=== PATIENT | female | born 1950 | race Caucasian/White ===

== ENCOUNTER → 2017-09-23 10:54 | Outpatient (CLI) | payer MEDICARE, SELFPAY ==
[2017-09-23 11:42] LABS: Basophils % 0.5 % (0.1-2.0); Eosinophils # 0.1 K/mm3 (0.0-0.4); Eosinophils % 1.8 % (0.1-12.0); Hematocrit 39.9 % (37.0-47.0); Hemoglobin 13.8 g/dL (12.2-16.2); Lymphocytes # 1.8 K/mm3 (0.7-4.5); Lymphocytes % 34.3 K/mm3 (10-50); Mean Corpuscular HGB Conc 34.5 g/dL (31.8-35.4); Mean Corpuscular Hemoglobin 32.2 pg (27.0-31.2); Mean Corpuscular Volume 93.2 fl (81-99); Mean Platelet Volume 8.4 fl (7.4-10.4); Monocytes # 0.4 K/mm3 (0.1-1.0); Monocytes % 7.2 % (1.7-9.3); Neutrophils # 2.9 K/mm3 (1.8-7.8); Neutrophils % 56.2 % (37.0-80.0); Platelet Count 190 K/mm3 (142-424); Red Blood Count 4.28 M/mm3 (4.20-5.40); Red Cell Distribution Width 12.7 % (11.5-17.5); White Blood Count 5.1 K/mm3 (4.8-10.8)
[2017-09-23 12:15] LABS: Hemoglobin A1C 5.4 % (0.0-7.0)
[2017-09-23 12:36] LABS: Alanine Aminotransferase 27 U/L (12-78); Albumin Level 4.2 gm/dL (3.4-5.0); Albumin/Globulin Ratio 1.4 (1.1-1.8); Alkaline Phosphatase 81 U/L (46-116); Anion Gap 13.1 mEq/L (5-15); Aspartate Amino Transferase 24 U/L (15-37); Bilirubin,Total 0.5 mg/dL (0.2-1.0); Blood Urea Nitrogen 11 mg/dL (7-18); Calcium 9.7 mg/dL (8.5-10.1); Carbon Dioxide 28 mmol/L (21.0-32.0); Chloride 104 mmol/L (98-107); Chol/HDL Ratio 4.4 (1-3.5); Cholesterol 162 mg/dL (140-200); Creatinine,Serum 0.56 mg/dL (0.55-1.02); Estimated Glomerular Filt Rate 109 ml/min (>60); GFR (African American) 131 ML/MIN (>60); Globulin 2.9 gm/dl (1.3-3.2); Glucose 115 mg/dL (74-106); HDL Cholesterol 37 mg/dL (29-89); LDL Cholesterol 71 mg/dL (0-130); Potassium 4.1 mmoL/L (3.5-5.1); Sodium 141 mmol/L (136-145); Thyroid Stimulating Hormone 2.43 uIU/ml (0.358-3.740); Total Protein,Serum 7.1 gm/dL (6.4-8.2); Triglycerides 268 mg/dL (30-200); VLDL Cholesterol 54 mg/dL (0-40)
== END ==
PROVIDERS: Visit Provider Internal Medicine Adolescent Medicine
DX: E78.5 Hyperlipidemia, unspecified (principal); E11.9 Type 2 diabetes mellitus without complications; E03.9 Hypothyroidism, unspecified; Q25.3 Supravalvular aortic stenosis
CPT/HCPCS: 36415; 80053; 80061; 83036; 84443; 85025

== ENCOUNTER → 2018-02-04 14:03 | Outpatient (CLI) | payer MEDICARE, SELFPAY ==
--- NOTE | 2018-02-04 14:45 | NVE_ITS ---
Venous Exam Indications: 729.5 Pain in limb. Knee surgery 01/31/18 IMPRESSIONS 1. There is no evidence of significant Reflux. 2. No evidence of deep or superficial vein thrombosis involving the right lower extremity Right lower extremity venous duplex evaluation. Doppler flow study including spectral analysis, color and quiles scale imaging. Location: Vascular laboratory. Patient status: Outpatient. Tables: Venous flow and imaging: + +-------+ + Location Overall Flow properties + +-------+ + Left common femoral Patent Normal phasicity; spontaneous; normal augmentation; compressible + +-------+ + Left saphenofemoral junction Patent Compressible + +-------+ + Left profunda femoral Patent Compressible + +-------+ + Left femoral Patent Normal phasicity; spontaneous; normal augmentation; compressible + +-------+ + Left greater saphenous Patent Normal phasicity; spontaneous; normal augmentation; compressible + +-------+ + Left popliteal Patent Normal phasicity; spontaneous; normal augmentation; compressible + +-------+ + Left posterior tibial Patent Compressible + +-------+ + Left peroneal Patent Compressible + +-------+ + Left gastrocnemius Patent Compressible + +-------+ + Left soleal Patent Compressible + +-------+ + (Report amended ) Electronically signed by: Miles Pacheco [id number]
== END ==
PROVIDERS: PCP Internal Medicine Adolescent Medicine; Visit Provider Internal Medicine Adolescent Medicine
DX: M79.661 Pain in right lower leg (principal)
CPT/HCPCS: 93971

== ENCOUNTER → 2018-05-31 10:30 | Outpatient (CLI) | payer MEDICARE, SELFPAY ==
--- NOTE | 2018-05-31 10:51 | XR_ITS ---
XR chest 2V HISTORY: Hypertension, diabetes, valve replacement, heart disease ITS.REASON: DM II ORDERING PHYSICIAN: Shane Izaguirre MD PATIENT AGE: 67 years COMPARISON: 06/30/2013 FINDINGS: There has been a prior median sternotomy with aortic valve replacement. Heart size is upper limits of normal. No evidence of CHF. There is fracture of the superiormost median sternotomy wire which has developed since the previous exam. There is also fracture of the most inferior median sternotomy wire also developed since the previous study.. The lungs are clear. No acute bony anomalies. IMPRESSION: Prior aortic valve replacement with borderline cardiomegaly, no acute finding
== END ==
PROVIDERS: Visit Provider Internal Medicine Adolescent Medicine
DX: Z01.818 Encounter for other preprocedural examination (principal); E11.9 Type 2 diabetes mellitus without complications; Z79.84 Long term (current) use of oral hypoglycemic drugs
CPT/HCPCS: 71046; 87081

== ENCOUNTER 2018-07-26 07:00 | Outpatient (RCR) | payer MEDICARE, SELFPAY | END 2018-08-02 11:27 | disposition home or self-care (01) | LOC: PT 07:00 | PROVIDERS: Visit Provider Orthopaedic Surgery | DX: Z96.651 Presence of right artificial knee joint (principal) | CPT/HCPCS: 97014; 97110; 97163; G0283 ==

== ENCOUNTER → 2018-11-14 10:45 | Outpatient (CLI) | payer MEDICARE, SELFPAY ==
[2018-11-14 11:19] LABS: Basophils % 0.4 % (0.1-2.0); Eosinophils # 0.1 K/mm3 (0.0-0.4); Eosinophils % 1.7 % (0.1-12.0); Hematocrit 42.2 % (37.0-47.0); Hemoglobin 13.5 g/dL (12.2-16.2); Lymphocytes # 1.5 K/mm3 (0.7-4.5); Lymphocytes % 29.7 % (10-50); Mean Corpuscular HGB Conc 31.9 g/dL (31.8-35.4); Mean Corpuscular Hemoglobin 30.7 pg (27.0-31.2); Mean Corpuscular Volume 96.4 fl (81-99); Mean Platelet Volume 9.4 fl (7.4-10.4); Monocytes # 0.3 K/mm3 (0.1-1.0); Monocytes % 6.5 % (1.7-9.3); Neutrophils # 3.1 K/mm3 (1.8-7.8); Neutrophils % 61.7 % (37.0-80.0); Platelet Count 176 K/mm3 (142-424); Red Blood Count 4.38 M/mm3 (4.20-5.40); Red Cell Distribution Width 13.5 % (11.5-17.5); White Blood Count 5.1 K/mm3 (4.8-10.8)
[2018-11-14 12:13] LABS: Erythrocyte Sedimentation Rate 14 mm/hr (0-30)
[2018-11-14 12:35] LABS: Alanine Aminotransferase 28 U/L (12-78); Albumin Level 4.1 gm/dL (3.4-5.0); Albumin/Globulin Ratio 1.5 (1.1-1.8); Alkaline Phosphatase 92 U/L (46-116); Anion Gap 13.6 mEq/L (5-15); Aspartate Amino Transferase 18 U/L (15-37); Bilirubin,Total 0.5 mg/dL (0.2-1.0); Blood Urea Nitrogen 17 mg/dL (7-18); Calcium 9.4 mg/dL (8.5-10.1); Carbon Dioxide 29 mmol/L (21.0-32.0); Chloride 103 mmol/L (98-107); Creatinine,Serum 0.59 mg/dL (0.55-1.02); Estimated Glomerular Filt Rate 102 ml/min (>60); GFR (African American) 123 ML/MIN (>60); Globulin 2.8 gm/dl (1.3-3.2); Glucose 113 mg/dL (74-106); Potassium 4.6 mmoL/L (3.5-5.1); Sodium 141 mmol/L (136-145); Thyroid Stimulating Hormone 1.54 uIU/ml (0.358-3.740); Total Protein,Serum 6.9 gm/dL (6.4-8.2)
[2018-11-14 12:51] LABS: C-Reactive Protein < 0.2 mg/L (0.0-0.9)
== END ==
PROVIDERS: Visit Provider Internal Medicine Adolescent Medicine
DX: I10 Essential (primary) hypertension (principal)
CPT/HCPCS: 36415; 80053; 84443; 85025; 85651; 86140

== ENCOUNTER → 2018-12-26 10:27 | Outpatient (CLI) | payer MEDICARE, OTHER, SELFPAY ==
--- NOTE | 2018-12-26 10:40 | XR_ITS ---
PROCEDURE: XR FOOT WT BEARING RT 3V CLINICAL INDICATION: foot pain of right great toe COMPARISON: No exams were available for comparison FINDINGS: No fracture or dislocation. No lytic or blastic change. There is normal mineralization. Mild to moderate hallux valgus with bunion formation and osteoarthritis of the 1st MTP joint. There is some minimal periosteal reaction along the distal aspect of the 1st metatarsal medially. Osteoarthritic changes are present at the tarsal metatarsal junction digits 1 through 5. There is an os cuboid and os navicularis Other findings:None. IMPRESSION: Hallux valgus with degenerative changes as described above Dictated by: Miles Pacheco MD 12/26/2018 13:13 Signed by: <Electronically signed by Miles Pacheco MD in [place]> 12/26/2018 13:13
--- NOTE | 2018-12-26 10:40 | XR_ITS ---
PROCEDURE: XR FOOT WT BEARING LT 3V CLINICAL INDICATION: pain COMPARISON: Right foot from the same day FINDINGS: Mild hallux valgus with bunion formation and osteoarthritis of the 1st MTP joint. There is cortical thickening involving the shaft of the 4th metatarsal with osteoarthritic changes at the metatarsal tarsal joint of digits 2 through 5 with subarticular cystic changes. There is mild pes planus with bony hypertrophic change noted at the navicular cuneiform joint. Subarticular cystic changes present at the metatarsal tarsal junction of the 5th metatarsal. The joint spaces are well-preserved. No significant degenerative/arthritic changes. No erosive changes evident. Other findings:Vascular calcifications IMPRESSION: Pes planus with hallux valgus and degenerative changes as described above Dictated by: Miles Pacheco MD 12/26/2018 12:42 Signed by: <Electronically signed by Miles Pacheco MD in [place]> 12/26/2018 12:42
== END ==
PROVIDERS: PCP Internal Medicine Adolescent Medicine; Visit Provider Podiatrist
DX: M79.672 Pain in left foot (principal); M79.671 Pain in right foot
CPT/HCPCS: 73630

== ENCOUNTER → 2019-03-14 07:33 | Outpatient (CLI) | payer MEDICARE, OTHER, SELFPAY ==
--- NOTE | 2019-03-14 | CA_ITS ---
APPROVED REPORT EXAM: Comprehensive 2D, Doppler, and color-flow Echocardiogram Cable Assembler And Swager: Ann Torres CRT Ht: 5 ft 2 in Wt: 185lbs BSA: 1.85 BP: 117/60 mmHg Indications: AVR, BOVINE 06/11/13, MURMUR more pronounced, DM, HLD, HTN 2D Dimensions IVSd 2.10 cm LVEF (Visual) 42.60 % PWd 1.12 cm LVDd 4.82 cm LVDs 3.81 cm LVOT 2.55 cm (M/F) 1.5-2.5 M-Mode Dimensions LVDd 4.82 cm (3.5-5.7) LVDs 3.81 cm (3.5-5.7) IVSd 2.10 cm (0.6-1.1) PWd 1.12 cm (0.6-1.1) FS 21.00% LV Diastology E/A Ratio 2.58 Aortic Valve LVOT Max 110.00 (70-110 cm/s) LVOT VTI 32.06 cm Mitral Valve MV A Velocity 49.00 (40-130 cm/s) Left Ventricle Left atrium is moderately enlarged, left ventricle is normal size, mild concentric left ventricular hypertrophy, visually estimated ejection fraction 55% with no regional wall motion abnormality. Diastolic parameters are inconclusive. Right Ventricle Right atrium right ventricle mildly enlarged with normal contractility. Aortic Valve There is a bioprosthetic valve noted in the aortic position, the valve is well-seated. The mean gradient across prosthetic valve is 14 mmHg, valve area is 1.2 cm???, there is mild aortic insufficiency. Mitral Valve Mitral inflow velocity within normal range, there is no mitral stenosis, there is mild mitral regurgitation. Tricuspid Valve Tricuspid valve is grossly normal, there is mild tricuspid regurgitation, calculated right ventricular systolic pressure 38 mmHg. Pulmonic Valve Pulmonic valve is poorly visualized. Great Vessels Aortic root is normal size. Pericardium No significant pericardial effusion noted. Conclusion 1. Enlarged left atrium, normal left ventricular size, mild concentric left ventricular hypertrophy, visually estimated ejection fraction 55% with no regional wall motion abnormality. 2. Bioprosthetic valve in the aortic position, mean gradient across valve is 14 mmHg, valve area is calculated 1.2 cm???, there is mild aortic insufficiency. 3. Mild mitral and tricuspid regurgitation, calculated right ventricular systolic pressure 38 mmHg 4. No significant pericardial effusion noted. Electronically signed by : Frank Quintana, 03/16/2019 14:25:11
== END ==
PROVIDERS: PCP Internal Medicine Adolescent Medicine; Visit Provider Internal Medicine Adolescent Medicine
DX: R01.1 Cardiac murmur, unspecified (principal)
CPT/HCPCS: 93306

== ENCOUNTER → 2019-06-18 09:27 | Outpatient (CLI) | payer MEDICARE, OTHER, SELFPAY ==
[2019-06-18 09:47] LABS: Basophils % 0.6 % (0.1-2.0); Eosinophils # 0.1 K/mm3 (0.0-0.4); Eosinophils % 2.5 % (0.1-12.0); Hematocrit 40.1 % (37.0-47.0); Hemoglobin 13.3 g/dL (12.2-16.2); Lymphocytes # 1.5 K/mm3 (0.7-4.5); Lymphocytes % 29.6 % (10-50); Mean Corpuscular HGB Conc 33.2 g/dL (31.8-35.4); Mean Corpuscular Volume 93.3 fl (81-99); Mean Platelet Volume 8.9 fl (7.4-10.4); Monocytes # 0.4 K/mm3 (0.1-1.0); Neutrophils # 3.1 K/mm3 (1.8-7.8); Neutrophils % 59.3 % (37.0-80.0); Platelet Count 170 K/mm3 (142-424); Red Blood Count 4.29 M/mm3 (4.20-5.40); Red Cell Distribution Width 13.7 % (11.5-17.5); White Blood Count 5.2 K/mm3 (4.8-10.8)
[2019-06-18 11:14] LABS: Alanine Aminotransferase 28 U/L (12-78); Albumin Level 4.1 gm/dL (3.4-5.0); Albumin/Globulin Ratio 1.6 (1.1-1.8); Alkaline Phosphatase 61 U/L (46-116); Anion Gap 12.6 mEq/L (5-15); Aspartate Amino Transferase 22 U/L (15-37); Bilirubin,Total 0.4 mg/dL (0.2-1.0); Blood Urea Nitrogen 19 mg/dL (7-18); Calcium 9.4 mg/dL (8.5-10.1); Carbon Dioxide 29 mmol/L (21.0-32.0); Chloride 106 mmol/L (98-107); Chol/HDL Ratio 3.4 (1-3.5); Cholesterol 125 mg/dL (140-200); Creatinine,Serum 0.64 mg/dL (0.55-1.02); Estimated Glomerular Filt Rate 93 ml/min (>60); GFR (African American) 112 ML/MIN (>60); Globulin 2.6 gm/dl (1.3-3.2); Glucose 113 mg/dL (74-106); HDL Cholesterol 37 mg/dL (29-89); LDL Cholesterol 46 mg/dL (0-130); Potassium 4.6 mmoL/L (3.5-5.1); Sodium 143 mmol/L (136-145); Thyroid Stimulating Hormone 1.74 uIU/ml (0.358-3.740); Total Protein,Serum 6.7 gm/dL (6.4-8.2); Triglycerides 209 mg/dL (30-200); VLDL Cholesterol 42 mg/dL (0-40)
[2019-06-18 11:46] LABS: Hemoglobin A1C 5.6 % (0.0-7.0)
== END ==
PROVIDERS: Visit Provider Internal Medicine Adolescent Medicine
DX: E03.9 Hypothyroidism, unspecified (principal); E78.2 Mixed hyperlipidemia; E11.9 Type 2 diabetes mellitus without complications; Z79.84 Long term (current) use of oral hypoglycemic drugs
CPT/HCPCS: 36415; 80053; 80061; 83036; 84443; 85025

== ENCOUNTER → 2019-08-29 10:25 | Outpatient (CLI) | payer MEDICARE, OTHER, SELFPAY ==
--- NOTE | 2019-08-29 10:39 | XR_ITS ---
PROCEDURE: XR ANKLE RT MIN 3V CLINICAL INDICATION: ARTHRITIS Right ankle pain COMPARISON: XR FOOT WT BEARING RT 3V from 12/26/2018 FINDINGS: No fracture or dislocation. No lytic or blastic change. Talar dome has an unremarkable appearance and the ankle mortise is well preserved. There are mild arthritic changes of the midfoot. There is mild prominence of the posterior talar process and there is a small calcaneal spur. Small focal area of calcification noted at the distal Achilles region IMPRESSION: Mild degenerative changes Dictated by: Miles Pacheco MD 08/29/2019 11:42 Electronically signed by Miles Pacheco MD in [place] 08/29/2019 11:42
[2019-08-29 12:38] LABS: Chloride 104 mmol/L (98-107); Sodium 138 mmol/L (136-145)
[2019-08-29 12:39] LABS: Potassium 4.2 mmoL/L (3.5-5.1)
[2019-08-29 12:41] LABS: Alanine Aminotransferase 20 U/L (12-78); Albumin Level 4.4 g/dl (3.5-5.0); Albumin/Globulin Ratio 1.8 (1.1-1.8); Alkaline Phosphatase 73 U/L (38-126); Anion Gap 12.2 mEq/L (5-15); Aspartate Amino Transferase 28 U/L (14-36); Bilirubin,Total 0.4 mg/dl (0.2-1.3); Blood Urea Nitrogen 11 mg/dl (7-17); Carbon Dioxide 26 mmol/L (22.0-30.0); Estimated Glomerular Filt Rate 100 ml/min (>60); GFR (African American) 121 ML/MIN (>60); Globulin 2.4 g/dL (1.3-3.2); Total Protein,Serum 6.8 g/dl (6.3-8.2); Uric Acid 4.6 mg/dl (2.5-6.2)
[2019-08-29 12:42] LABS: Calcium 10.3 mg/dl (8.4-10.2); Glucose 130 mg/dl (74-100)
[2019-08-29 13:33] LABS: Erythrocyte Sedimentation Rate 17 mm/hr (0-30)
[2019-08-29 13:37] LABS: Basophils # 0.1 K/mm3 (0-0.2); Eosinophils # 0.2 K/mm3 (0.0-0.4); Eosinophils % 2.5 % (0.1-12.0); Hematocrit 40.3 % (37.0-47.0); Hemoglobin 13.3 g/dL (12.2-16.2); Lymphocytes # 1.7 K/mm3 (0.7-4.5); Lymphocytes % 28.4 % (10-50); Mean Corpuscular HGB Conc 33.1 g/dL (31.8-35.4); Mean Corpuscular Hemoglobin 31.7 pg (27.0-31.2); Mean Corpuscular Volume 95.8 fl (81-99); Mean Platelet Volume 9.2 fl (7.4-10.4); Monocytes # 0.5 K/mm3 (0.1-1.0); Monocytes % 7.9 % (1.7-9.3); Neutrophils # 3.6 K/mm3 (1.8-7.8); Neutrophils % 60.2 % (37.0-80.0); Platelet Count 182 K/mm3 (142-424); Red Blood Count 4.21 M/mm3 (4.20-5.40); Red Cell Distribution Width 13.2 % (11.5-17.5); White Blood Count 5.9 K/mm3 (4.8-10.8)
== END ==
PROVIDERS: PCP Internal Medicine Adolescent Medicine; Visit Provider Internal Medicine Adolescent Medicine
DX: M19.071 Primary osteoarthritis, right ankle and foot (principal); Z79.899 Other long term (current) drug therapy
CPT/HCPCS: 36415; 73610; 80053; 84550; 85025; 85651

== ENCOUNTER → 2019-10-04 08:57 | Outpatient (CLI) | payer MEDICARE, OTHER, SELFPAY ==
--- NOTE | 2019-10-04 09:08 | XR_ITS ---
PROCEDURE: XR ANKLE WT BEARING RT MIN 3V CLINICAL INDICATION: pain COMPARISON: No exams were available for comparison FINDINGS: Minimal spurring noted at the tip of the medial malleolus. Normal alignment. No fracture or dislocation. The ankle mortise is well preserved and the talar dome has an unremarkable appearance. IMPRESSION: Minimal degenerative changes Dictated by: Miles Pacheco MD 10/04/2019 13:24 Electronically signed by Miles Pacheco MD in [place] 10/04/2019 13:24
--- NOTE | 2019-10-04 09:08 | XR_ITS ---
PROCEDURE: XR FOOT WT BEARING RT 3V CLINICAL INDICATION: pain COMPARISON: FTL3 FOOT-LT-3 VIEWS from 08/09/2013 XR FOOT WT BEARING RT 3V from 12/26/2018 XR FOOT WT BEARING LT 3V from 12/26/2018 XR ANKLE WT BEARING RT MIN 3V from 10/04/2019 FINDINGS: There is moderate hallux valgus with osteoarthritis of the 1st MTP joint. There is bunion formation at the distal 1st metatarsal Osteoarthritic changes are present at the tarsal metatarsal junction and to lesser degree at the talonavicular, calcaneocuboid, and navicular cuneiform joint. Other findings:None. IMPRESSION: Osteoarthritic changes with hallux valgus. Overall no significant change Dictated by: Miles Pacheco MD 10/04/2019 13:22 Electronically signed by Miles Pacheco MD in [place] 10/04/2019 13:22
== END ==
PROVIDERS: PCP Internal Medicine Adolescent Medicine; Visit Provider Podiatrist
DX: M25.571 Pain in right ankle and joints of right foot (principal)
CPT/HCPCS: 73610; 73630

== ENCOUNTER → 2019-10-25 07:29 | Outpatient (CLI) | payer MEDICARE, OTHER, SELFPAY ==
[2019-10-25 07:54] LABS: Blood Urea Nitrogen 14 mg/dl (7-17); Estimated Glomerular Filt Rate 83 ml/min (>60); GFR (African American) 101 ML/MIN (>60)
--- NOTE | 2019-10-25 08:29 | MR_ITS ---
PROCEDURE: MR ANKLE RT WO/W CON CLINICAL INDICATION: ankle pain Foot and ankle pain with motion COMPARISON: XR FOOT WT BEARING RT 3V from 10/04/2019 XR ANKLE WT BEARING RT MIN 3V from 10/04/2019 TECHNIQUE: Routine multiplanar multi echo sequences are performed without and with gadolinium enhancement. FINDINGS: The tibiofibular syndesmosis appears intact as does the ATFL and PT FL. Deltoid ligament has an unremarkable appearance. There is a small amount fluid within the tendon sheath of the peroneal tendons at the retro malleolar groove. There is some heterogeneous signal intensity of the peroneal longus inferior to the retro malleolar groove best seen 18 through 22. There is mild diffuse increased signal intensity involving the peroneus longus in its horizontal course distal to the inferior aspect of the calcaneus and proximal to the cuboid. Some of this may be due to magic angle artifact. Tendinopathy/tendinosis or even partial tear is also consideration. The posterior tibialis, flexor hallucis longus, and flexor digitorum longus and Achilles tendon have an unremarkable appearance. There is increased T2 signal in the surrounding soft tissues adjacent to the peroneus longus at the area of abnormal tendon signal with some enhancement of the soft tissues is well in this region. There is some mild bone marrow edema of the cuneiforms with degenerative changes IMPRESSION: 1. Abnormal appearance of the peroneus longus tendon with a small amount fluid in the tendon sheath at the retro malleolar groove and heterogeneous signal intensity at the retro malleolar groove and distal to this area with diffuse increased T2 signal of the tendon proximal to the cuboid suggesting tendinopathy/tendinosis or possible partial tear with some edema in the soft tissues adjacent to the tendon. Some of the abnormal signal within the peroneus longus tendon may be related to magic angle artifact. 2. Degenerative changes of the cuneiforms not well demonstrated on this study of the ankle. Dictated by: Miles Pacheco MD 10/27/2019 07:55 Electronically signed by Miles Pacheco MD in [place] 10/27/2019 07:55
== END ==
PROVIDERS: PCP Internal Medicine Adolescent Medicine; Visit Provider Podiatrist
DX: M25.371 Other instability, right ankle (principal); M25.471 Effusion, right ankle; M76.71 Peroneal tendinitis, right leg; M25.571 Pain in right ankle and joints of right foot
CPT/HCPCS: 36415; 73723; 82565; 84520; A9576

== ENCOUNTER → 2019-11-14 10:22 | Outpatient (CLI) | payer MEDICARE, OTHER, SELFPAY ==
--- NOTE | 2019-11-14 10:24 | CA_ITS ---
APPROVED REPORT Exam: Pharmacologic Technologist: Shasha Head Ht: 5 ft 1 in Wt: 197 lbs BSA: 1.88 m2 HR: 61 bpm BP: 123/57 mmHg Indications: Chest pain, Carotid Bruits bilat Medical History Medications: Amlodipine,,,,, Omeprazole,,,,, Levothyroxine,,,,, Aspirin,,,,, Metoprolol,,,,, Simvastatin,,,,, Metformin,,,,, Losartan,,,,, Diclofenac,,,,, BuPROPION,,,,, Clobetasol,,,,, Stress Test Details Test: LEXISCAN HR Resting HR: 61 bpm Max Heart Rate (APMHR): 153 bpm Max HR Achieved: 83 bpm Target HR (85% APMHR): 130 bpm % of APMHR: 54 Recovery HR: 73 bpm BP Resting BP: 123.0/57.0 mmHg Max BP: 138.0/58.0 mmHg Recovery BP: 138.0/62.0 mmHg ECG Clinical Exercise duration: 04:01 min Highest Stage Achieved: Exercise capacity: 1.0 METs Stress ECG Conclusion Resting ECG: Normal sinus rhythm, NS IVCD ST abnormality Symptoms: Mild chest fullness, shortness of air, headache, malaise Arrhythmias/Ectopy: None ST-T Changes: No significant changes Conclusion: Unremarkable Lexiscan stress. Myoview images reported separately. Test Summary REST 03:54 . . 61 . 123/ 57 . . Stage 1 . . . . . . . Myoview Injected Stage 1 01:00 . . 82 . . . . Stage 2 01:00 . . 75 . 134/ 57 . . Stage 3 . . . . . . . . Stage 3 . . . . . . . chest feels full Stage 3 01:00 . . 71 . 137/ 57 . . Stage 4 01:00 . . 70 . 138/ 58 . . Stage 4 01:01 . . 70 . 138/ 58 . Stop exercise at 04:01 RECOVERY 01:00 . . 69 . . . . RECOVERY 02:00 . . 70 . 123/ 61 . . RECOVERY 03:00 . . 73 . 138/ 62 . . RECOVERY 03:35 . . 70 . 138/ 62 . . Electronically signed by : Frank Quintana, 11/15/2019 09:55:12
--- NOTE | 2019-11-14 10:24 | CA_ITS ---
APPROVED REPORT Pipeline Inspector: SERGIO Laterality: Bilateral Study Quality: Fair, Due to body habitus. Indications: bilateral bruits Risk Factors Hypertension: Hyperlipidemia Doppler Spectral Velocity Analysis ECA (R) 109.20/12.70 cm/s ECA (L) 73.20/10.50 cm/s dICA (R) 99.40/25.70 cm/s dICA (L) 97.80/25.40 cm/s Ijeoma (R) 131.10/28.30 cm/s Ijeoma (L) 75.40/20.20 cm/s pICA (R) 58.40/12.70 cm/s pICA (L) 70.30/18.80 cm/s dCCA (R) 87.50/18.70 cm/s dCCA (L) 74.50/18.00 cm/s pCCA (R) 110.00/15.00 cm/s pCCA (L) 117.40/16.30 cm/s Vert (R) 60.00/14.60 cm/s Vert (L) 40.30/13.70 cm/s ICA/CCA 1.50 ICA/CCA 1.30 Findings Duplex evaluation demonstrates stenosis of the right proximal internal carotid artery <20% with PSV <140 cm/sec, EDV <100 cm/sec, and IC/CC Ratio <4.0.Duplex evaluation demonstrates stenosis of the left proximal internal carotid artery <20% with PSV <140 cm/sec, EDV <100 cm/sec, and IC/CC Ratio <4.0. Conclusion No increased velocities to suggest hemodynamically significant stenosis in either internal carotid artery. Electronically signed by : Miles Pacheco MD 11/15/2019 17:31:00
--- NOTE | 2019-11-14 10:24 | NM_ITS ---
APPROVED REPORT Exam: Nuclear Stress Test Indication: CAD, VALVULAR DISEASE, OBESITY, HTN, D.M., HYPERLIPIDEMIA, FM HX., C.P., SOB, SYNCOPE, FATIGUE Patient Location: Outpatient Stress Tech: Shsaha Head NM Tech:Mable Waters, ARRT, RT (R)(N) Ht: 5 ft 1 in Wt: 197 lbs Bra Size: DDD HR: 61 bpm BP: 123/57 mmHg BSA: 1.88 m2 BMI: 37.2 History: CAD, VALVULAR DISEASE, OBESITY, HTN, D.M., HYPERLIPIDEMIA, FM HX., C.P., SOB, SYNCOPE, FATIGUE Procedure: Patient received a 0.4 mg of intravenous Lexiscan, resting heart rate 61 bpm, resting blood pressure 123/57 mmHg, with Lexiscan maximum heart rate achived was 68 bpm which is Less than 85 % of the maximum predicted heart rate and blood pressure was 138/58 mmHg. CHEST FULLNESS Electrocardiogram Resting electrocardiogram showed sinus rhythm, with Lexiscan there is less than 1.[address] segment depression noted from the baseline EKG. The EKG portion of the Lexiscan Myoview is nondiagnostic. Cardiac Stress and Resting SPECT Images: Cardiac Stress and Resting SPECT images were obtained using technetium 99m Myoview 32.4 mCi stress and 10.46 mCi at rest. Gated SPECT for the analysis of segmental wall motion and calculation of the ejection fraction also done. Cardiac stress and resting SPECT images show mild fixed defect in the anterior wall with normal contour gated SPECT is likely secondary to soft tissue attenuation, no reversible ischemia seen. Computer derived ejection fraction 59% with no regional wall motion abnormality, right ventricle is normal size and contractility. Conclusion: 1. The EKG portion of the Lexiscan Myoview is nondiagnostic. 2. No scintigraphic evidence of reversible ischemia seen, computer derived ejection fraction 59% with no regional wall motion abnormality, right ventricle is normal size and contractility. 3. Likely normal Lexiscan Myoview study. Electronically signed by : Frank Quintana, 11/15/2019 09:57:34
--- NOTE | 2019-11-14 13:03 | HMH.ITSHM ---
Current Home Medications as stated by this patient Mireya Schwartz or district representative. []SIMVASTATIN OMEPRAZOLE METOPROLOL METFORMIN LOSARTAN LEVOTHYROXINE DICLOFENAC ASA AMLODIPINE
== END ==
PROVIDERS: PCP Internal Medicine Adolescent Medicine; Visit Provider Nurse Practitioner Family
DX: R06.00 Dyspnea, unspecified (principal); R07.9 Chest pain, unspecified; R09.89 Other specified symptoms and signs involving the circulatory and respiratory systems
CPT/HCPCS: 78452; 93017; 93880; A9502; J2785

== ENCOUNTER 2019-12-08 17:32 | Emergency (ER) | payer MEDICARE, OTHER, SELFPAY ==
[2019-12-08 17:33] VITALS: BP 147/56; PULSE 70; RESP 18; TEMP 37.4; O2SAT 97; BMI 37.2
--- NOTE | 2019-12-08 17:42 | ECG_ITS ---
APPROVED REPORT Exam: Resting ECG HR:70 bpm ECG Measurements Heart Rate 70 AXES NV 138 P 52 QRSd 114 QRS -34 QT 414 T 65 QTc 447 <Conclusion> Normal sinus rhythm Possible Left atrial enlargement Left axis deviation,LAHB Abnormal ECG Electronically signed by : Adin Hodge, 12/09/2019 22:03:33
--- NOTE | 2019-12-08 18:03 | XR_ITS ---
PROCEDURE: XR CHEST PORTABLE Patient Age:69Y CLINICAL HISTORY: CP COMPARISON: No exams were available for comparison FINDINGS: AP portable chest upright performed today and compared to most recent chest film 05/31/2018. . Today's kettle operator film, and higher contrast technique does accentuate markings but I see no convincing focal infiltrate Markings are upper normal towards the right lung base. Likely reflecting some minor chronic changes. Less optimal inspiration today also makes situated markings. The heart is upper normal in size borderline cardiomegaly. Normal pulmonary vascularity. Previous median sternotomy. A disruption of the uppermost wire suture as sternotomy again noted-stable feature since 2018. No pleural effusion or pneumothorax. Chest wall unremarkable. IMPRESSION: Nothing definitely acute Borderline cardiomegaly. Previous sternotomy Dictated by: Dale Elizabeth MD 12/08/2019 19:49 Electronically signed by Dale Elizabeth MD in [place] 12/08/2019 19:49
--- NOTE | 2019-12-08 18:14 | HMH.EDCP ---
ED Disposition Condition on Discharge: Fair - Critical Care Critical Care Time: No <Sharif Blackmon - Last Filed: 12/08/19 19:59> Condition on Discharge: Good <Robby Abdul - Last Filed: 12/09/19 01:43> Clinical Impression: Left arm pain Disposition: Home, Self-Care Instructions: DI for Atypical Chest Pain Additional Instructions: See Dr. Garcia in his office at 9 AM Tuesday morning. Turn to the emergency room if symptoms worsen: Pain that does not resolve with rest, worsening pain or shortness of breath. Referrals: Shane Izaguirre MD [Primary Care Provider] - Attestation: On 12/08/19, the high probability of a clinically significant, sudden or life threatening deterioration of the following system(s) required my full and direct attention, intervention and personal management. The time I documented below is in addition to time spent performing reported procedures but includes the following listed in this critical care notation. Medical Decision Making - Jeff Inquiry Pt receiving controlled substance: No - Lab Data Lab results reviewed: Yes: I reviewed the patient's lab results. Result diagrams: 12/08/19 18:07 12/08/19 18:07 - ECG Data Tracing #1 ECG initial impression date: 12/08/19 ECG initial impression time: 17:50 ECG normal with no acute: arrhythmias, ischemia, conduction abnormalities, chamber hypertrophy Normal Sinus Rhythm: Yes <Sharif Blackmon - Last Filed: 12/08/19 19:59> - Medical Records Medical records reviewed: Yes: I reviewed the patient's medical records. - Lab Data Result diagrams: 12/08/19 18:07 12/08/19 18:07 - Physician Consults Physician Consulted: Radha Time: 20:45 Reason -: Cardiology Eval/Care Comment/Response: Second troponin is negative, discharge home and patient to follow-up in his office at 9 AM on Tuesday. Patient is agreeable with this plan. - Reevaluation(s) Time: 20:30 Time: 21:25 - ALVIN Score for Non-Stemi Age of Patient: 60-69 years old Heart Rate: 70-89 bpm Systolic Blood Pressure: 140-159 mmHg Serum Creatinine: 0.40-0.79 mg/dl CHF Killip Class: I-No CHF Other Risk Factors: None Non-Stemi Risk Score: 95 <Robby Abdul - Last Filed: 12/09/19 01:43> Vital Signs: 12/08/19 17:33 12/08/19 20:42 12/08/19 21:39 Temperature 99.4 F 98.2 F Temperature Source Oral Oral Pulse Rate 75 Pulse Rate [Radial] 70 66 Respiratory Rate 18 18 16 Blood Pressure 118/53 L Blood Pressure [Right Arm] 147/56 H 149/71 H Blood Pressure Mean [Right Arm] 86 97 Blood Pressure Source Automatic Cuff Blood Pressure Source [Right Arm] Automatic Cuff Blood Pressure Position Sitting Blood Pressure Position [Right Arm] Sitting 02 Sat by Pulse Oximetry 97 96 Oxygen Delivery Method Room Air Room Air Room Air - Lab Data Lab Results 12/08/19 18:07: WBC 7.2, RBC 4.12 L, Hgb 13.5, Hct 36.6 L, MCV 88.9, MCH 32.7 H, MCHC 36.7 H, RDW 13.8, Plt Count 191, MPV 9.0, Neut % (Auto) 60.1, Lymph % (Auto) 31.4, Calvert % (Auto) 6.1, Eos % (Auto) 2.1, Baso % (Auto) 0.5, Neut # (Auto) 4.3, Lymph # (Auto) 2.3, Calvert # (Auto) 0.4, Eos # (Auto) 0.2, Baso # (Auto) 0.0 12/08/19 18:07: Sodium 140, Potassium 4.2, Chloride 103, Carbon Dioxide 28, Anion Gap 13.2, BUN 16, Creatinine 0.70, Estimated Creat Clear 77, Estimated GFR 83, Est GFR ( Amer) 101, Glucose 109 H, Calcium 10.5 H, Total Bilirubin 0.6, AST 38 H, ALT 32, Alkaline Phosphatase 70, Total Creatine Kinase 87, CK-MB (CK-2) 2.8 H, Troponin I < 0.01, NT-Pro-B Natriuret Pep 325 H, Total Protein 7.1, Albumin 4.5, Globulin 2.6, Albumin/Globulin Ratio 1.7 12/08/19 20:35: Troponin I < 0.01 - Reevaluation(s) Reevaluation #1: Pain-free at this time. States that she is supposed to have her second troponin drawn now, although it was scheduled for 9:15 PM. She says that Dr. Blackmon told her an hour ago that it would be drawn in 1 hour and she is insistent that it be drawn now. (Robby Abdul) Reevaluation #3:
[2019-12-08 18:23] LABS: Basophils % 0.5 % (0.1-2.0); Eosinophils # 0.2 K/mm3 (0.0-0.4); Eosinophils % 2.1 % (0.1-12.0); Hematocrit 36.6 % (37.0-47.0); Hemoglobin 13.5 g/dL (12.2-16.2); Lymphocytes # 2.3 K/mm3 (0.7-4.5); Lymphocytes % 31.4 % (10-50); Mean Corpuscular HGB Conc 36.7 g/dL (31.8-35.4); Mean Corpuscular Hemoglobin 32.7 pg (27.0-31.2); Mean Corpuscular Volume 88.9 fl (81-99); Monocytes # 0.4 K/mm3 (0.1-1.0); Monocytes % 6.1 % (1.7-9.3); Neutrophils # 4.3 K/mm3 (1.8-7.8); Neutrophils % 60.1 % (37.0-80.0); Platelet Count 191 K/mm3 (142-424); Red Blood Count 4.12 M/mm3 (4.20-5.40); Red Cell Distribution Width 13.8 % (11.5-17.5); White Blood Count 7.2 K/mm3 (4.8-10.8)
[2019-12-08 18:24] LABS: Chloride 103 mmol/L (98-107); Potassium 4.2 mmoL/L (3.5-5.1); Sodium 140 mmol/L (136-145)
[2019-12-08 18:27] LABS: Alanine Aminotransferase 32 U/L (12-78); Albumin Level 4.5 g/dl (3.5-5.0); Albumin/Globulin Ratio 1.7 (1.1-1.8); Alkaline Phosphatase 70 U/L (38-126); Anion Gap 13.2 mEq/L (5-15); Aspartate Amino Transferase 38 U/L (14-36); Bilirubin,Total 0.6 mg/dl (0.2-1.3); Blood Urea Nitrogen 16 mg/dl (7-17); Calcium 10.5 mg/dl (8.4-10.2); Carbon Dioxide 28 mmol/L (22.0-30.0); Creatine Kinase 87 U/L (30-135); Creatinine Clearance Estimated 77 mL/min (50-200); Estimated Glomerular Filt Rate 83 ml/min (>60); GFR (African American) 101 ML/MIN (>60); Globulin 2.6 g/dL (1.3-3.2); Glucose 109 mg/dl (74-100); Total Protein,Serum 7.1 g/dl (6.3-8.2)
--- NOTE | 2019-12-08 18:32 | PC.NURSE ---
Pt up to restroom
[2019-12-08 18:36] LABS: Creatine Kinase MB 2.8 ng/ml (0.0-2.03); NT Pro Brain Natriuretic Pep. 325 pg/mL (0-125)
[2019-12-08 18:43] LABS: Troponin I < 0.01 ng/ml (0.00-0.034)
[2019-12-08 20:42] VITALS: BP 149/71; PULSE 66; RESP 18; O2SAT 96
[2019-12-08 21:08] LABS: Troponin I < 0.01 ng/ml (0.00-0.034)
[2019-12-08 21:39] VITALS: BP 118/53; PULSE 75; RESP 16; TEMP 36.8; O2SAT 98
== END 2019-12-08 21:40 | disposition home or self-care (01) ==
PROVIDERS: Emergency Medicine; Emergency Provider Emergency Medicine; PCP Internal Medicine Adolescent Medicine
DX: M79.602 Pain in left arm (principal); E11.9 Type 2 diabetes mellitus without complications; F41.8 Other specified anxiety disorders; I10 Essential (primary) hypertension; E78.5 Hyperlipidemia, unspecified; E03.9 Hypothyroidism, unspecified; Z88.2 Allergy status to sulfonamides; Z88.5 Allergy status to narcotic agent
CPT/HCPCS: 71045; 80053; 82550; 82553; 83880; 84484; 85025; 93005; 99283

== ENCOUNTER → 2019-12-10 08:04 | Outpatient (CLI) | payer MEDICARE, OTHER, SELFPAY ==
[2019-12-10 09:47] LABS: Chloride 102 mmol/L (98-107)
[2019-12-10 09:48] LABS: Potassium 4.1 mmoL/L (3.5-5.1); Sodium 139 mmol/L (136-145)
[2019-12-10 09:51] LABS: Anion Gap 14.1 mEq/L (5-15); Blood Urea Nitrogen 15 mg/dl (7-17); Calcium 9.6 mg/dl (8.4-10.2); Carbon Dioxide 27 mmol/L (22.0-30.0); Estimated Glomerular Filt Rate 83 ml/min (>60); GFR (African American) 101 ML/MIN (>60); Glucose 181 mg/dl (74-100)
[2019-12-10 09:57] LABS: NT Pro Brain Natriuretic Pep. 237 pg/mL (0-125)
== END ==
PROVIDERS: Visit Provider Internal Medicine Cardiovascular Disease
DX: E11.9 Type 2 diabetes mellitus without complications (principal); E78.5 Hyperlipidemia, unspecified; I10 Essential (primary) hypertension; R06.00 Dyspnea, unspecified; R07.9 Chest pain, unspecified; R09.89 Other specified symptoms and signs involving the circulatory and respiratory systems; Z95.3 Presence of xenogenic heart valve; Z79.84 Long term (current) use of oral hypoglycemic drugs
CPT/HCPCS: 36415; 80048; 83880

== ENCOUNTER → 2019-12-12 14:43 | Outpatient (CLI) | payer MEDICARE, OTHER, SELFPAY ==
--- NOTE | 2019-12-12 14:46 | CA_ITS ---
APPROVED REPORT EXAM: Comprehensive 2D, Doppler, and color-flow Echocardiogram Journal Box Inspector: Sadia Borja RVT Ht: 5 ft 2 in Wt: 198lbs BSA: 1.90 BP: 142/73 mmHg Indications: SOA,AP,ABN EKG,AVR,DM,HTN,HLD TDS 2D Dimensions LVOT 1.67 cm (M/F) 1.5-2.5 M-Mode Dimensions LVDd 5.40 cm (3.5-5.7) LVDs 3.40 cm (3.5-5.7) IVSd 1.66 cm (0.6-1.1) PWd 1.06 cm (0.6-1.1) EF (Teich) 66.50% FS 37.00% EDV (Teich) 141.30 mL ESV (Teich) 47.40 mL LV Diastology E/A Ratio 0.74 Aortic Valve LVOT Max 285.00 (70-110 cm/s) LVOT VTI 67.68 cm Mitral Valve MV A Velocity 101.00 (40-130 cm/s) Left Ventricle Left atrium is moderately enlarged, left ventricle is normal size, mild concentric left ventricular hypertrophy, visually estimated ejection fraction 55% with no regional wall motion abnormality. Diastolic parameters are inconclusive. Right Ventricle Right atrium and right ventricular mildly enlarged with normal contractility. Aortic Valve There is a bioprosthetic valve noted in the aortic position. 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 There is aortic insufficiency present, which is difficult to quantify, this is likely in severe range. A transesophageal echocardiogram is recommended. Mitral Valve Mitral valve leaflets are minimally thickened, there is mitral annular calcification present, there is no mitral stenosis, there is mild mitral regurgitation. Tricuspid Valve Tricuspid valve is grossly normal, there is mild tricuspid regurgitation. Pulmonic Valve Pulmonic valve is poorly visualized. Great Vessels Aortic root is normal size. Pericardium No significant pericardial effusion noted Conclusion 1. Moderately enlarged left atrium, normal left ventricular size, mild concentric left ventricular hypertrophy, visually estimated ejection fraction 55% with no regional wall motion abnormality, diastolic parameters are inconclusive. 2. Bioprosthetic valve in the aortic position, the mean gradient across valve is 32 mmHg, there is aortic insufficiency present which is difficult to quantify this is likely in severe range, a transesophageal echocardiogram is recommended. 3. Mild mitral and tricuspid regurgitation. 4. No significant pericardial effusion noted. Electronically signed by : Frank Quintana, 12/13/2019 16:18:12
== END ==
PROVIDERS: PCP Internal Medicine Adolescent Medicine; Visit Provider Nurse Practitioner Family
DX: R06.00 Dyspnea, unspecified (principal); E11.42 Type 2 diabetes mellitus with diabetic polyneuropathy; E78.2 Mixed hyperlipidemia; I10 Essential (primary) hypertension; K21.9 Gastro-esophageal reflux disease without esophagitis; R07.9 Chest pain, unspecified; R94.31 Abnormal electrocardiogram [ECG] [EKG]; Z95.2 Presence of prosthetic heart valve
CPT/HCPCS: 93306

== ENCOUNTER → 2019-12-17 10:57 | Outpatient (CLI) | payer MEDICARE, OTHER, SELFPAY ==
[2019-12-17 11:54] LABS: Anion Gap 15.2 mEq/L (5-15); Blood Urea Nitrogen 14 mg/dl (7-17); Calcium 10.5 mg/dl (8.4-10.2); Carbon Dioxide 30 mmol/L (22.0-30.0); Chloride 99 mmol/L (98-107); Estimated Glomerular Filt Rate 83 ml/min (>60); GFR (African American) 101 ML/MIN (>60); Glucose 121 mg/dl (74-100); Potassium 4.2 mmoL/L (3.5-5.1); Sodium 140 mmol/L (136-145)
== END ==
PROVIDERS: Visit Provider Nurse Practitioner Family
DX: E11.42 Type 2 diabetes mellitus with diabetic polyneuropathy (principal); E78.2 Mixed hyperlipidemia; I10 Essential (primary) hypertension; K21.9 Gastro-esophageal reflux disease without esophagitis; R94.31 Abnormal electrocardiogram [ECG] [EKG]; Z95.2 Presence of prosthetic heart valve
CPT/HCPCS: 36415; 80048

== ENCOUNTER 2019-12-20 11:31 | Day surgery (SDC) | payer MEDICARE, OTHER, SELFPAY ==
--- NOTE | 2019-12-20 | CA_ITS ---
APPROVED REPORT EXAM: Comprehensive 2D, Doppler, and color-flow Echocardiogram Wildlife And Game Protector: Arlette Houston RDCS Ht: 5 ft 1 in Wt: 198lbs BSA: 1.88 BP: 140/80 mmHg Indications: GISSEL, MR,MVR BOVINE Procedure After obtaining informed consent, patient underwent transesophageal echo in the [facility] Worker. Type of Sedation : Conscious Sedation Sedation was administered by Jaime MayfieldR.N.AJamal Transesophageal probe was inserted and advanced into esophagus without difficulty by Dr. Inés Sarmiento. The GISSEL was performed without complications. Throughout the procedure, the blood pressure, pulse oximetry, cardiac rhythm, and rate were monitored. The patient tolerated the procedure without adverse effects. Recovery from conscious sedation was uneventful and vital signs were stable. Left Ventricle Left ventricle is normal size, mild concentric left ventricular hypertrophy, visually estimated ejection fraction 55% with no regional wall motion abnormality. Right Ventricle Right ventricle is mildly enlarged with normal contractility. Atria Left atrium is moderately enlarged, left atrial appendage is free of thrombus, there is good appendage flow by spectral Doppler. Right atrium is mildly enlarged. Intra-atrial septum is intact, there is no flow across the interatrial septum, agitated saline contrast study fails to identify intracardiac shunt. Aortic Valve There is a bioprosthetic valve in the aortic position, the valve is well-seated, the valve leaflets are not well visualized, there appears to be significant restriction in the leaflet mobility, there is severe aortic insufficiency. Aortic insufficiency appears to be valvular rather than perivalvular. Mitral Valve Mitral valve leaflets are minimally thickened, there is mitral annular calcification present, there is no mitral stenosis, there is mild mitral regurgitation. Tricuspid Valve Tricuspid valve is grossly normal, there is mild tricuspid regurgitation. Pulmonic Valve Pulmonic valve is poorly visualized. Great Vessels Aortic root is normal size. Pericardium No significant pericardial effusion noted Conclusion 1. Biatrial enlargement, normal left ventricular size, mild concentric left ventricular hypertrophy, preserved left ventricular systolic function, visually estimated ejection fraction 55% with no regional wall motion abnormality. 2. 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 3. Mild mitral and tricuspid regurgitation. 4. Agitated saline contrast reveals 25 intracardiac shunt. 5. No significant pericardial effusion noted. Electronically signed by : Frank Quintana, 12/20/2019 15:00:36
[2019-12-20 11:40] VITALS: BMI 35.8
[2019-12-20 11:57] VITALS: BP 122/48; PULSE 58; RESP 18; O2SAT 97
[2019-12-20 12:05] VITALS: PULSE 59
[2019-12-20 12:10] LABS: Basophils % 0.5 % (0.1-2.0); Eosinophils # 0.2 K/mm3 (0.0-0.4); Eosinophils % 3.3 % (0.1-12.0); Hematocrit 37.8 % (37.0-47.0); Hemoglobin 13.3 g/dL (12.2-16.2); Lymphocytes # 2.1 K/mm3 (0.7-4.5); Lymphocytes % 30.1 % (10-50); Mean Corpuscular HGB Conc 35.3 g/dL (31.8-35.4); Mean Corpuscular Hemoglobin 32.7 pg (27.0-31.2); Mean Corpuscular Volume 92.7 fl (81-99); Mean Platelet Volume 8.6 fl (7.4-10.4); Monocytes # 0.4 K/mm3 (0.1-1.0); Monocytes % 5.6 % (1.7-9.3); Neutrophils # 4.2 K/mm3 (1.8-7.8); Neutrophils % 60.5 % (37.0-80.0); Platelet Count 182 K/mm3 (142-424); Red Blood Count 4.07 M/mm3 (4.20-5.40); Red Cell Distribution Width 13.6 % (11.5-17.5); White Blood Count 6.9 K/mm3 (4.8-10.8)
[2019-12-20 12:43] LABS: Coronavirus 19 IgG Antibody Negative (Negative); Coronavirus 19 IgM Antibody Negative (Negative)
[2019-12-20 13:05] VITALS: BP 112/46; PULSE 60; RESP 20; O2SAT 98
[2019-12-20 13:10] VITALS: BP 120/55; PULSE 61; RESP 20; O2SAT 98
[2019-12-20 14:06] VITALS: BP 105/49; PULSE 60; RESP 16; O2SAT 100
--- NOTE | 2019-12-21 10:42 | P.PN_ITS ---
[facility] Anesthesia Checklist - Patient Identification Patient Identification: Arm Band - Structural Data Admitted From: Home Planned Operative Procedure/s: GISSEL Consent for Planned Operative Procedure(s) Verified: Yes Verified Documents: Surgical Consent, History and Physical - NPO Status Verified Time NPO: 00:00 - Additional verifications Anesthesia Reactions: No - Airway Assessment C-Spine Mobility Assessed: Yes (mp2) TMJ Mobility Assessed: Yes Dentition: Good Dentition - Neurological Assessment Level of Consciousness: Awake, Alert - Anesthesia Plan Anesthesia Risk discussed: Yes Anesthesia Plan: Verified ASA Class: III Anesthesia Type: MAC [facility] History Medical History: Reports:: Anxiety, Coronary Artery Disease, Diabetes Mellitus Type 2, Hyperlipidemia, Hypertension Denies:: Cancer, Diabetes Mellitus Type 1, Internal Pacemaker, MRSA, Seizures *Have you ever received a pneumonia vaccine?: Yes *Have you received a flu vaccine this season?: Yes Other Medical History: Reports: Arthritis, Hypothyroidism Anesthesia experience/problems:: nac Laterality Cases: Bilateral: Arthroscopy Knee, Carpal Tunnel Release, Ton sillectomy Other Surgeries: Yes: Cardiac Surgery, Cholecystectomy, Tubal Ligation, Other. No: Pacemaker Amputation: No Fractures: No - *Social History Smoking Status: Never smoker Alcohol Intake: never Alcohol Intake Frequency:: other Substance Use Type: denies use *Occupational Status:: retired Housing: house Household Members: spouse *Travel in the last 8 weeks: None - Psychiatric History Pschychiatric History:: Reports:: Anxiety Family Hx:: Cancer, Diabetes, Heart Attack, Hyperlipidemia, Hypertension, Kidney Disease, Asthma
== END 2019-12-20 14:08 | disposition home or self-care (01) ==
LOC: CATHLAB 11:32
PROVIDERS: PCP Internal Medicine Adolescent Medicine; Visit Provider Internal Medicine Cardiovascular Disease
DX: I35.1 Nonrheumatic aortic (valve) insufficiency (principal); I10 Essential (primary) hypertension; I25.10 Atherosclerotic heart disease of native coronary artery without angina pectoris; E78.5 Hyperlipidemia, unspecified; E03.9 Hypothyroidism, unspecified; E11.9 Type 2 diabetes mellitus without complications; Z88.2 Allergy status to sulfonamides; Z88.5 Allergy status to narcotic agent; Z79.84 Long term (current) use of oral hypoglycemic drugs; Z79.52 Long term (current) use of systemic steroids; Z79.899 Other long term (current) drug therapy; Z95.2 Presence of prosthetic heart valve
CPT/HCPCS: 85025; 86328; 93312

== ENCOUNTER 2019-12-24 10:05 | Day surgery (SDC) | payer MEDICARE, OTHER, SELFPAY ==
[2019-12-24] VITALS (21 sets, daily range): BP systolic 111–163; BP diastolic 55–79; PULSE 58–70; RESP 16–18; O2SAT 96–100; BMI 35.8
--- NOTE | 2019-12-24 | IR_ITS ---
APPROVED REPORT Patient Location: Outpatient Sanitation Manager: THAO Cooley RT (R) PROCEDURES Right heart catheterization Left heart catheterization Left ventriculogram Selective coronary angiogram Catheter placed in the ascending aorta Ascending aortography INDICATION Preoperative evaluation for aortic valve replacement, Severe aortic stenosis with severe aortic regurgitation, Pulmonary hypertension Informed consent was obtained prior to the procedure. COMPLICATIONS None Estimated Blood Loss: less than 10 ml TECHNIQUE 1% lidocaine used anesthetize the right groin the right femoral artery and vein were accessed via the Salinger technique a 5 British 7 British sheath was placed in the artery vein respectively. [place] catheter was floated into the pulmonary artery under fluoroscopic guidance and a right heart catheterization with saturation was performed. Following this a JL4 JR4 catheter used to perform left heart catheterization left ventriculogram and selective coronary angiogram. Following this a pigtail catheter was placed in the ascending aorta and ascending aortography was performed. At the end of the procedure the apparatus was removed the patient was transferred to the postop holding her stable addition for sheath removal ANGIOGRAPHIC RESULTS The left main artery Normal The left anterior descending artery Has proximal 10% stenosis with mid vessel 20 to 30% stenoses The circumflex artery Large vessel with mild luminal irregularities The right coronary artery Is dominant and normal The DON ventriculogram reveals Preserved 60% The left ventricular end-diastolic pressure 35 mmHg Right atrial pressure 12 mmHg Pulmonary pressure 55/38 mmHg Pulmonary occlusion pressure 35 mmHg There is a 60 mm trans-aortic gradient upon pullback with a 5 British JR4 catheter Plus for aortic regurgitation is identified The ascending aortic root is mildly dilated Right atrial saturation 80% Pulmonary artery saturation 78% IMPRESSION Mild LAD disease as described above Severe aortic stenosis as described above Severe aortic regurgitation as described above Preserved ejection fraction Severe pulmonary hypertension secondary to elevated left-sided filling pressures PLAN 1. Patient is being evaluated for aortic valve replacement Electronically signed by : Carl Garcia, 12/24/2019 13:38:58
[2019-12-24 11:23] LABS: Basophils % 0.3 % (0.1-2.0); Eosinophils # 0.2 K/mm3 (0.0-0.4); Eosinophils % 2.4 % (0.1-12.0); Hematocrit 41.4 % (37.0-47.0); Hemoglobin 14.5 g/dL (12.2-16.2); Lymphocytes # 1.8 K/mm3 (0.7-4.5); Lymphocytes % 25.8 % (10-50); Mean Corpuscular Hemoglobin 32.9 pg (27.0-31.2); Mean Corpuscular Volume 93.8 fl (81-99); Mean Platelet Volume 9.3 fl (7.4-10.4); Monocytes # 0.4 K/mm3 (0.1-1.0); Monocytes % 5.8 % (1.7-9.3); Neutrophils # 4.4 K/mm3 (1.8-7.8); Neutrophils % 65.7 % (37.0-80.0); Platelet Count 169 K/mm3 (142-424); Red Blood Count 4.42 M/mm3 (4.20-5.40); Red Cell Distribution Width 13.5 % (11.5-17.5); White Blood Count 6.8 K/mm3 (4.8-10.8)
[2019-12-24 11:29] LABS: Chloride 101 mmol/L (98-107); Potassium 4.4 mmoL/L (3.5-5.1); Sodium 141 mmol/L (136-145)
[2019-12-24 11:32] LABS: Anion Gap 13.4 mEq/L (5-15); Blood Urea Nitrogen 16 mg/dl (7-17); Calcium 10.3 mg/dl (8.4-10.2); Carbon Dioxide 31 mmol/L (22.0-30.0); Creatinine Clearance Estimated 77 mL/min (50-200); Estimated Glomerular Filt Rate 100 ml/min (>60); GFR (African American) 121 ML/MIN (>60); Glucose 137 mg/dl (74-100)
[2019-12-24 11:58] LABS: Coronavirus 19 IgG Antibody Negative (Negative); Coronavirus 19 IgM Antibody Negative (Negative)
[2019-12-24 14:50] LABS: CATHL Arterial O2 SAT 78.8 % (90-100); CATHL Venous O2 SAT 80.3 % (75-80)
== END 2019-12-24 16:23 | disposition home or self-care (01) ==
LOC: CATHLAB 10:07
PROVIDERS: PCP Internal Medicine Adolescent Medicine; Visit Provider Internal Medicine
DX: I25.10 Atherosclerotic heart disease of native coronary artery without angina pectoris (principal); E11.9 Type 2 diabetes mellitus without complications; I10 Essential (primary) hypertension; E78.5 Hyperlipidemia, unspecified; E03.9 Hypothyroidism, unspecified; Z88.2 Allergy status to sulfonamides; Z88.5 Allergy status to narcotic agent; R06.02 Shortness of breath; Z88.8 Allergy status to other drugs, medicaments and biological substances; I35.1 Nonrheumatic aortic (valve) insufficiency; Z79.84 Long term (current) use of oral hypoglycemic drugs; Z79.52 Long term (current) use of systemic steroids; Z79.899 Other long term (current) drug therapy; Z95.2 Presence of prosthetic heart valve; I27.20 Pulmonary hypertension, unspecified
CPT/HCPCS: 80048; 82810; 85025; 86328; 93460; 99152; 99153; C1725; C1769; C1894; J1644; Q9966; Q9967

== ENCOUNTER → 2020-02-04 11:30 | Outpatient (CLI) | payer MEDICARE, OTHER, SELFPAY ==
[2020-02-04 13:30] VITALS: PULSE 48; PULSE 52
== END ==
PROVIDERS: PCP Internal Medicine Adolescent Medicine; Visit Provider Thoracic Surgery (Cardiothoracic Vascular Surgery)
DX: R06.89 Other abnormalities of breathing (principal)
CPT/HCPCS: 94060; 94640; 94726; 94729

== ENCOUNTER → 2020-02-11 08:10 | Outpatient (CLI) | payer MEDICARE, OTHER, SELFPAY | PROVIDERS: Visit Provider Thoracic Surgery (Cardiothoracic Vascular Surgery) | DX: Z03.818 Encounter for observation for suspected exposure to other biological agents ruled out (principal) | CPT/HCPCS: U0003 ==

== ENCOUNTER → 2020-04-01 10:00 | Outpatient (CLI) | payer MEDICARE, OTHER, SELFPAY ==
--- NOTE | 2020-04-01 10:05 | XR_ITS ---
PROCEDURE: XR CERVICAL SPINE 5V CLINICAL INDICATION: NECK PAIN COMPARISON: No exams were available for comparison FINDINGS: No fracture or dislocation. No lytic or blastic change. There is normal mineralization. Multilevel degenerative disc disease is present from C2 to C7. There is normal alignment. No fracture or dislocation. There is foraminal narrowing on the right at C4-C5 and C5-C6 and C6-C7 and to lesser degree on the left at C6-C7. Nuchal ligament calcification is noted at the C 4 C5 level. Other findings:None. IMPRESSION: Multilevel cervical spondylosis. No acute fracture. Dictated by: Miles Pacheco MD 04/01/2020 15:54 Miles Pacheco MD in [place] 04/01/2020 15:54
== END ==
PROVIDERS: PCP Internal Medicine Adolescent Medicine; Visit Provider Internal Medicine Adolescent Medicine
DX: M54.2 Cervicalgia (principal)
CPT/HCPCS: 72050

== ENCOUNTER 2020-04-08 09:27 | Outpatient (RCR) | payer MEDICARE, OTHER, SELFPAY | END 2020-07-09 13:51 | disposition home or self-care (01) | LOC: PT 09:27 | PROVIDERS: Visit Provider Nurse Practitioner Family | DX: Z95.2 Presence of prosthetic heart valve (principal) | CPT/HCPCS: 93798 ==

== ENCOUNTER → 2020-04-29 08:09 | Outpatient (CLI) | payer MEDICARE, OTHER, SELFPAY ==
--- NOTE | 2020-04-29 08:17 | XR_ITS ---
PROCEDURE: XR ELBOW LT MIN 3V CLINICAL INDICATION: LATERAL EPICONYLITIS OF LT ELBOW COMPARISON: No exams were available for comparison FINDINGS: No fracture or dislocation. No lytic or blastic change. There is normal mineralization. The joint spaces are well-preserved. No significant degenerative/arthritic changes. No erosive changes evident. Other findings:Minimal hypertrophic changes are present at the coronoid process.. Nonspecific soft tissue calcifications noted medially at the forearm IMPRESSION: Minimal degenerative change Dictated by: Miles Pacheco MD 04/29/2020 16:39 Miles Pacheco MD in [facility] 04/29/2020 16:39
== END ==
PROVIDERS: PCP Internal Medicine Adolescent Medicine; Visit Provider Internal Medicine Adolescent Medicine
DX: M77.12 Lateral epicondylitis, left elbow (principal)
CPT/HCPCS: 73080

== ENCOUNTER 2020-06-03 07:47 | Outpatient (RCR) | payer MEDICARE, OTHER, SELFPAY | END 2020-06-03 07:50 | disposition home or self-care (01) | LOC: OT 07:47 | PROVIDERS: PCP Internal Medicine Adolescent Medicine; Visit Provider Orthopaedic Surgery | DX: M77.12 Lateral epicondylitis, left elbow (principal) | CPT/HCPCS: 97166 ==

== ENCOUNTER → 2020-06-28 12:21 | Outpatient (CLI) | payer MEDICARE, OTHER, SELFPAY | PROVIDERS: PCP Internal Medicine Adolescent Medicine; Visit Provider Internal Medicine Adolescent Medicine | DX: Z20.822 Contact with and (suspected) exposure to COVID-19 (principal) | CPT/HCPCS: U0003 ==

== ENCOUNTER → 2020-10-22 10:14 | Outpatient (CLI) | payer MEDICARE, OTHER, SELFPAY ==
--- NOTE | 2020-10-22 10:16 | US_ITS ---
PROCEDURE: US SOFT TISSUE HEAD AND NECK CLINICAL INDICATION: NODULE OF LT EXTERNAL EAR COMPARISON: No exams were available for comparison FINDINGS: Ultrasound of the soft tissues of the neck performed. Anterior to the left parotid gland at site of palpable abnormality there is a lobular shaped 1-2 centimeter complex cystic structure. While this may represent a complex cyst or solid nodule could not be entirely excluded. Correlation with CT soft tissue neck with IV contrast is recommended. There are no other abnormalities. IMPRESSION: 1-2 centimeter complex cystic structure left ear region anterior to the left parotid gland. While this may represent a complex cyst, atypical lymph node would be another possibility. Therefore CT soft tissue neck with IV contrast is recommended to more definitively assess for adenopathy. Dictated by: Shane Gasca MD 10/22/2020 12:40 Shane Gasca MD in [facility] 10/22/2020 12:40
== END ==
PROVIDERS: PCP Internal Medicine Adolescent Medicine; Visit Provider Internal Medicine Adolescent Medicine
DX: H61.892 Other specified disorders of left external ear (principal)
CPT/HCPCS: 76536

== ENCOUNTER → 2020-10-29 08:41 | Outpatient (CLI) | payer MEDICARE, OTHER, SELFPAY ==
[2020-10-29 09:04] LABS: Blood Urea Nitrogen 14 mg/dl (7-17); Estimated Glomerular Filt Rate 83 ml/min (>60); GFR (African American) 101 ML/MIN (>60)
--- NOTE | 2020-10-29 09:13 | CT_ITS ---
PROCEDURE INFORMATION: Exam: CT Neck With Contrast Exam date and time: 10/29/2020 9:13 AM Age: 70 years old Clinical indication: Condition or disease; Other: Nodule of left ear; Additional info: Nodule of lt external ear TECHNIQUE: Imaging protocol: Computed tomography images of the neck with contrast. Radiation optimization: All CT scans at this facility use at least one of these dose optimization techniques: automated exposure control; mA and/or kV adjustment per patient size (includes targeted exams where dose is matched to clinical indication); or iterative reconstruction. Contrast material: ISOVUE; Contrast volume: 75 ml; Contrast route: IV; COMPARISON: 1. US SOFT TISSUE HEAD AND NECK 10/22/2020 10:41 AM 2. CR XR CERVICAL SPINE 5V 04/01/2020 10:26 AM FINDINGS: Nasopharynx: Unremarkable. Oropharynx: Unremarkable. No significant tonsillar enlargement. Hypopharynx: Unremarkable. Larynx: Unremarkable. Normal epiglottis. Retropharyngeal space: Unremarkable. Submandibular/Parotid glands: There is a 1.7 cm nodule along the anterior and inferior margin of the left parotid gland. This may reflect an intraparotid lymph node versus parotid neoplasm. Thyroid: Normal. No enlarged or calcified nodules. Lymph nodes: Unremarkable. No lymphadenopathy. Trachea: Visualized trachea is unremarkable. Lungs: Unremarkable as visualized. Bones/joints: Unremarkable. No acute fracture. Soft tissues: Unremarkable. No significant soft tissue swelling. IMPRESSION: 1.7 cm left parotid nodule, potentially intraparotid lymph node versus parotid neoplasm. Tissue sampling may be of benefit as indicated.
== END ==
PROVIDERS: PCP Internal Medicine Adolescent Medicine; Visit Provider Internal Medicine Adolescent Medicine
DX: I10 Essential (primary) hypertension (principal); H61.892 Other specified disorders of left external ear; R22.1 Localized swelling, mass and lump, neck
CPT/HCPCS: 36415; 70491; 82565; 84520; Q9967

== ENCOUNTER → 2020-11-25 08:47 | Outpatient (POV) | payer MEDICARE, OTHER, SELFPAY | PROVIDERS: Visit Provider Otolaryngology | DX: Z00.00 Encounter for general adult medical examination without abnormal findings (principal) ==

== ENCOUNTER → 2020-12-25 09:12 | Outpatient (CLI) | payer MEDICARE, OTHER, SELFPAY ==
--- NOTE | 2020-12-25 09:18 | US_ITS ---
PROCEDURE: US FNA OTHER CLINICAL INDICATION: NMODULE OF PAROTID GLAND COMPARISON: CT CT SOFT TISSUE NECK W CON from 10/29/2020 FINDINGS: Following obtaining informed consent and time-out procedure, under aseptic conditions and local anesthesia with 1 percent buffered lidocaine, 3 passes were made into the nodule with a 21 gauge needle with sonographic guidance. No immediate complications. Cytology: Atypical, consistent with pleomorphic adenoma IMPRESSION: Status post ultrasound-guided FNA of the left parathyroid nodule without complications with atypical cytology consistent with pleomorphic adenoma Dictated by: Miles Pacheco MD 01/19/2021 10:10 Miles Pacheco MD in [facility] 01/19/2021 10:10
== END ==
PROVIDERS: PCP Internal Medicine Adolescent Medicine; Visit Provider Otolaryngology
DX: K11.8 Other diseases of salivary glands (principal); D11.0 Benign neoplasm of parotid gland
CPT/HCPCS: 10005; 88173

== ENCOUNTER → 2021-01-13 10:41 | Outpatient (POV) | payer MEDICARE, OTHER, SELFPAY | PROVIDERS: Visit Provider Otolaryngology | DX: Z00.00 Encounter for general adult medical examination without abnormal findings (principal) ==

== ENCOUNTER → 2021-01-29 10:32 | Outpatient (CLI) | payer MEDICARE, OTHER, SELFPAY ==
--- NOTE | 2021-01-29 10:38 | XR_ITS ---
PROCEDURE: XR KNEE RT 3V CLINICAL INDICATION: RT KNEE PAIN COMPARISON: CR KNEEAPSB KNEE-AP STANDING-BOTH KNEES from 08/09/2013 CR KNEE3R KNEE-3 VIEWS-RT from 11/16/2014 FINDINGS: Good alignment status post total knee replacement. No evidence of orthopedic complication. No acute fracture or dislocation. No lytic or blastic change. IMPRESSION: No acute findings. Dictated by: Miles Pacheco MD 01/29/2021 12:46 Miles Pacheco MD in [facility] 01/29/2021 12:46
== END ==
PROVIDERS: PCP Internal Medicine Adolescent Medicine; Visit Provider Internal Medicine Adolescent Medicine
DX: M25.561 Pain in right knee (principal)
CPT/HCPCS: 73562

== ENCOUNTER → 2021-05-05 12:22 | Outpatient (CLI) | payer MEDICARE, OTHER, SELFPAY | PROVIDERS: PCP Internal Medicine Adolescent Medicine; Visit Provider Internal Medicine Cardiovascular Disease | DX: G47.33 Obstructive sleep apnea (adult) (pediatric) (principal); R06.83 Snoring; R40.0 Somnolence; I10 Essential (primary) hypertension | CPT/HCPCS: G0399 ==

== ENCOUNTER → 2021-06-26 08:41 | Outpatient (CLI) | payer MEDICARE, OTHER, SELFPAY ==
--- NOTE | 2021-06-26 08:48 | US_ITS ---
FINAL REPORT CLINICAL HISTORY: RIGHT UPPER QUADRANT ABDOMINALPAIN. VOMITING FINDINGS: Sonographic images of the abdomen were obtained. The liver is mildly fatty infiltrated. The gallbladder is surgically absent. There is no evidence of biliary ductal dilatation. The common hepatic duct measures 5 mm, which is within normal limits. The pancreas is obscured. The spleen size is normal. The right kidney measures 11.5 cm in length. The left kidney measures 11.1 cm in length. There is normal renal echogenicity. There is no evidence of hydronephrosis. The aorta has an unremarkable appearance. Limited images of the inferior vena cava are unremarkable. IMPRESSION: Mild fatty infiltration of the liver. Absent gallbladder. Reviewed, Interpreted and Dictated by Devyn Garcia III, MD Transcribed by Richard Sunshine Authenticated by Devyn Garcia III, MD on 06/26/2021 10:43:22 AM [facility]
== END ==
PROVIDERS: PCP Internal Medicine Adolescent Medicine; Visit Provider Internal Medicine Adolescent Medicine
DX: R10.11 Right upper quadrant pain (principal)
CPT/HCPCS: 76700

== ENCOUNTER → 2021-10-30 14:46 | Outpatient (CLI) | payer MEDICARE, OTHER, SELFPAY ==
--- NOTE | 2021-10-30 14:47 | CA_ITS ---
APPROVED REPORT EXAM: Comprehensive 2D, Doppler, and color-flow Echocardiogram Crop Scout: Sadia Borja RVT Ht: 5 ft 2 in Wt: 192lbs BSA: 1.88 BP: 132/45 mmHg Indications: BOVINE AVR,MURMUR,NEAR SYNCOPE,PALPS,DM,HTN,HLD,ABN EKG 2D Dimensions LVOT 2.19 cm (M/F) 1.5-2.5 LA Volume 53.50 mL LA Volume Index 28.45 mL/m2 (M/F) 16-34 M-Mode Dimensions RVDd 4.38 cm (0.9-2.6) LA Diam 5.08 cm (1.9-4.0) LVDd 5.36 cm (3.5-5.7) Ao Diam 3.06 cm (2.0-3.7) LVDs 3.26 cm (3.5-5.7) IVSd 0.67 cm (0.6-1.1) PWd 1.34 cm (0.6-1.1) EF (Teich) 69.20% FS 39.20% EDV (Teich) 138.90 mL TAPSE 1.28 (<1.7) ESV (Teich) 42.80 mL LV Diastology E Decel Time 243.00 (160-240 msec) E/A Ratio 1.4 MED E' 5.60 (< 7 cm/sec) E'/MED E' Ratio 22.57 (>14) LAT E' 7.90 (<10 cm/sec) E/LAT E' Ratio 16.00 (>14) Aortic Valve LVOT Max 110.00 (70-110 cm/s) LVOT VTI 26.31 cm AoV Peak Evan. 217.00 (50-130 cm/s) AO Peak GR. 18.90 mmHg AO Mean GR. 10.80 (<5 mmHg) AO VTI 48.24 (18-25 cm) ANTONI (VTI) 2.05 (2.5-4.5 cm2) Mitral Valve MV E Max Evan. 126.00 (40-130 cm/s) MV A Velocity 92.00 (40-130 cm/s) E/A Ratio 1.38 MV Decel. Time 243.00 (160-240 ms) MV PHT 71.00 ms Pulmonary Valve PV Peak Velocity 89.00 (50-150 cm/s) Tricuspid Valve TR P. Velocity 233.00 cm/s RAP Estimate 10.00 mmHg RVSP 31.80 mmHg Left Ventricle Left atrium is moderately enlarged, left ventricle is normal size mild concentric left ventricular hypertrophy, estimated ejection fraction 55% with no regional wall motion abnormality, grade 2 diastolic dysfunction seen with tissue Doppler evidence of raise left atrial pressure. Right Ventricle Right atrium and right ventricle are mildly enlarged with normal contractility. Aortic Valve There is bioprosthetic valve noted in the aortic position, valve is well-seated, mean gradient across valve is 11 mmHg, valve area is 1.8 cm???, there is no aortic insufficiency. Mitral Valve Mitral valve has mitral calcification, leaflets are minimally thickened, there is no mitral stenosis, there is mild mitral regurgitation. Tricuspid Valve Tricuspid valve grossly normal, there is mild tricuspid regurgitation, tricuspid regurgitation jet velocity is inadequate for calculation of the right ventricular systolic pressure. Pulmonic Valve Pulmonic valve is poorly visualized. Great Vessels Aortic root is normal size. Inferior vena cava is normal size with normal inspiratory collapse. Pericardium No significant pericardial effusion noted. Conclusion 1. Enlarged left atrium, normal left ventricular size, mild concentric left ventricular hypertrophy, estimated ejection fraction 55% with no regional wall motion abnormality, grade 2 diastolic dysfunction seen with tissue Doppler evidence of raise left atrial pressure. 2. Normal functioning bioprosthetic valve in the aortic position without significant aortic stenosis or aortic insufficiency. 3. Mild mitral and tricuspid regurgitation. 4. No significant pericardial effusion. 5. Inferior vena cava normal size with normal inspiratory collapse. Electronically signed by : Frank Quintana MD 10/30/2021 15:34:36
== END ==
PROVIDERS: PCP Internal Medicine Adolescent Medicine; Visit Provider Internal Medicine
DX: E11.42 Type 2 diabetes mellitus with diabetic polyneuropathy (principal); E78.2 Mixed hyperlipidemia; I10 Essential (primary) hypertension; K21.9 Gastro-esophageal reflux disease without esophagitis; R94.31 Abnormal electrocardiogram [ECG] [EKG]; Z95.2 Presence of prosthetic heart valve; Z79.84 Long term (current) use of oral hypoglycemic drugs
CPT/HCPCS: 93306

== ENCOUNTER → 2021-10-31 10:47 | Outpatient (CLI) | payer MEDICARE, OTHER, SELFPAY | PROVIDERS: PCP Internal Medicine Adolescent Medicine; Visit Provider Internal Medicine | DX: R00.2 Palpitations; R42 Dizziness and giddiness; R94.31 Abnormal electrocardiogram [ECG] [EKG]; Z95.2 Presence of prosthetic heart valve; Z01.812 Encounter for preprocedural laboratory examination; Z20.822 Contact with and (suspected) exposure to COVID-19 | CPT/HCPCS: C9803; U0003; U0005 ==

== ENCOUNTER 2021-11-02 07:48 | Day surgery (SDC) | payer MEDICARE, OTHER, SELFPAY ==
[2021-11-02 07:54] VITALS: BMI 35.1
[2021-11-02 08:24] VITALS: BP 137/69; PULSE 72; RESP 18; O2SAT 98
[2021-11-02 10:41] VITALS: BP 104/54; PULSE 70; RESP 20; O2SAT 95
--- NOTE | 2021-11-03 16:19 | P.PCN_ITS ---
[facility] Loop Recorder Date: 11/02/21 Time: 10:25 Procedure Performed:: Internal loop recorder implantation Indication:: Syncope Technique:: Patient was brought to the cardiac [place] [employer] Reporter. After informed consent obtained, 1% lidocaine with epinephrine was used to anesthetize the site along the left anterior aspect of the chest near the sternal border. Using a scalpel, an incision was made and using the supplied preloaded apparatus, the loop recorder was placed subcutaneously without difficulty. Following the deployment of the loop recorder interrogation of the device was performed to ensure appropriate voltage was being detected. Once this was verified, Steri-Strips were placed over the incision and the patient was prepped to discharge home. Patient tolerated the procedure well with minimal discomfort. Impression:: Successful implantation of internal loop recorder. Serial Number:: [id number] Plan:: Routine postop care
== END 2021-11-02 10:44 | disposition home or self-care (01) ==
LOC: CATHLAB 07:49
PROVIDERS: PCP Internal Medicine Adolescent Medicine; Visit Provider Internal Medicine
DX: R55 Syncope and collapse (principal); R42 Dizziness and giddiness; R29.6 Repeated falls; E11.42 Type 2 diabetes mellitus with diabetic polyneuropathy; Z79.84 Long term (current) use of oral hypoglycemic drugs; I10 Essential (primary) hypertension; Z95.2 Presence of prosthetic heart valve; I25.10 Atherosclerotic heart disease of native coronary artery without angina pectoris
CPT/HCPCS: 33285

== ENCOUNTER → 2022-02-17 12:02 | Outpatient (CLI) | payer MEDICARE, OTHER, SELFPAY ==
[2022-02-17 12:27] LABS: Basophils % 0.5 % (0.1-2.0); Eosinophils # 0.1 K/mm3 (0.0-0.4); Eosinophils % 2.1 % (0.1-12.0); Hematocrit 39.8 % (37.0-47.0); Hemoglobin 12.6 g/dL (12.2-16.2); Lymphocytes # 1.5 K/mm3 (0.7-4.5); Lymphocytes % 29.4 % (10-50); Mean Corpuscular HGB Conc 31.5 g/dL (31.8-35.4); Mean Corpuscular Hemoglobin 30.2 pg (27.0-31.2); Mean Corpuscular Volume 95.6 fl (81-99); Mean Platelet Volume 8.4 fl (7.4-10.4); Monocytes # 0.4 K/mm3 (0.1-1.0); Monocytes % 8.4 % (1.7-9.3); Neutrophils # 3.1 K/mm3 (1.8-7.8); Neutrophils % 59.7 % (37.0-80.0); Platelet Count 219 K/mm3 (142-424); Red Blood Count 4.16 M/mm3 (4.20-5.40); Red Cell Distribution Width 13.2 % (11.5-17.5); White Blood Count 5.2 K/mm3 (4.8-10.8)
[2022-02-17 12:31] LABS: Anion Gap 11.6 mEq/L (5-15); Blood Urea Nitrogen 18 mg/dl (7-17); Calcium 9.6 mg/dl (8.4-10.2); Carbon Dioxide 32 mmol/L (22.0-30.0); Chloride 101 mmol/L (98-107); Estimated Glomerular Filt Rate 83 ml/min (>60); GFR (African American) 100 ML/MIN (>60); Glucose 112 mg/dl (74-100); Potassium 4.6 mmoL/L (3.5-5.1); Sodium 140 mmol/L (136-145)
[2022-02-17 12:43] LABS: Troponin I < 0.01 ng/ml (0.00-0.034)
--- NOTE | 2022-02-17 13:33 | CA_ITS ---
APPROVED REPORT EXAM: Comprehensive 2D, Doppler, and color-flow Echocardiogram Paint Stripper: Allison Calderon, DELFINO, RVS Ht: 5 ft 2 in Wt: 197lbs BSA: 1.90 BP: 127/44 mmHg Indications: Bovine AVR x 2, Angina x 2 weeks, Murmur, CP, DM, Exsmoker, HTN, HLD 2D Dimensions IVSd 1.45 cm LVEF (Visual) 70.10 % PWd 1.25 cm LA Volume 78.50 mL LVDd 4.91 cm LA Volume Index 41.30 mL/m2 (M/F) 16-34 LVDs 2.96 cm Aortic Root 2.58 cm Left Atrium 4.08 cm LVOT 1.86 cm (M/F) 1.5-2.5 M-Mode Dimensions LA Diam 4.30 cm (1.9-4.0) Ao Diam 2.78 cm (2.0-3.7) EPSs 0.44 cm TAPSE 1.88 (<1.7) LV Diastology E Decel Time 287.00 (160-240 msec) E/A Ratio 1.24 MED E' 6.50 (< 7 cm/sec) MED A' 6.30 cm/s E'/MED E' Ratio 17.26 (>14) LAT E' 7.00 (<10 cm/sec) LAT A' 5.70 cm/s E/LAT E' Ratio 16.03 (>14) Aortic Valve LVOT Max 113.00 (70-110 cm/s) LVOT VTI 27.94 cm AoV Peak Evan. 235.00 (50-130 cm/s) AO Peak GR. 22.00 mmHg AO Mean GR. 11.40 (<5 mmHg) AO VTI 52.22 (18-25 cm) ANTONI (VTI) 1.45 (2.5-4.5 cm2) Mitral Valve MV A Velocity 90.00 (40-130 cm/s) E/A Ratio 1.24 MV Decel. Time 287.00 (160-240 ms) MV Mean Gr. 2.30 (<2mmHg) MV PHT 83.00 ms Pulmonary Valve PV Peak Velocity 99.00 (50-150 cm/s) Tricuspid Valve TR P. Velocity 241.00 cm/s RAP Estimate 10.00 mmHg RVSP 33.30 mmHg Left Ventricle Left atrium is mildly enlarged, left ventricle is normal size mild concentric left ventricular hypertrophy, estimated ejection fraction 55% with no regional wall motion abnormality, grade 2 diastolic dysfunction seen with tissue Doppler evidence of raise left atrial pressure. Right Ventricle Right atrium and right ventricle are normal size and contractility. Aortic Valve There is bioprosthetic valve noted in the aortic position, mean gradient across valve is 12 mmHg, valve area is 1.64 cm???, there is no aortic insufficiency. Mitral Valve Mitral valve has mitral annular calcification, there is no mitral stenosis, there is mild mitral regurgitation. Tricuspid Valve Tricuspid valve grossly normal, there is mild tricuspid regurgitation, calculated right ventricular systolic pressure 33 mmHg. Pulmonic Valve Pulmonic valve is poorly visualized. Great Vessels Aortic root is normal size. Inferior vena cava is normal size with normal inspiratory collapse. Pericardium No significant pericardial effusion noted. Conclusion 1. Mildly enlarged left atrium, normal left ventricular size, mild concentric left ventricular hypertrophy, estimated ejection fraction 55% with no regional wall motion abnormality, grade 2 diastolic dysfunction seen with tissue Doppler evidence of raise left atrial pressure. 2. Normal functioning bioprosthetic valve in the aortic position without aortic flow obstruction or aortic insufficiency. 3. Mild mitral and tricuspid regurgitation, calculated right ventricular systolic pressure is 33 mmHg. 4. No significant pericardial effusion noted. 5. Inferior vena cava is normal size with normal inspiratory collapse. Electronically signed by : Frank Quintana MD 02/18/2022 05:58:34
== END ==
PROVIDERS: PCP Internal Medicine Adolescent Medicine; Visit Provider Internal Medicine Adolescent Medicine
DX: E78.2 Mixed hyperlipidemia (principal); I10 Essential (primary) hypertension; I20.8 Other forms of angina pectoris
CPT/HCPCS: 36415; 80048; 84484; 85025; 93306

== ENCOUNTER → 2022-02-25 11:20 | Outpatient (CLI) | payer MEDICARE, OTHER, SELFPAY ==
--- NOTE | 2022-02-25 14:45 | HMH.ITSHM ---
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 []ZINC SPIRONOLACTONE OMEPRAZOLE NITRO MULTIVITAMIN METOPROLOL VITAMIN B12 LOSARTAN LEVOTHYROXINE FUROSEMIDE CITALOPRAM VITAMIN D3 BUPROPION ATORVASTATIN ASA VITAMIN C AMLODIPINE
== END ==
PROVIDERS: PCP Internal Medicine Adolescent Medicine; Visit Provider Physician Assistant
DX: E78.2 Mixed hyperlipidemia (principal); I10 Essential (primary) hypertension; I20.8 Other forms of angina pectoris
CPT/HCPCS: 78452; 93017; A9502; J2785

== ENCOUNTER → 2022-03-11 12:34 | Outpatient (CLI) | payer MEDICARE, OTHER, SELFPAY ==
[2022-03-11 13:47] LABS: Anion Gap 15.4 mEq/L (5-15); Blood Urea Nitrogen 20 mg/dl (7-17); Calcium 10.3 mg/dl (8.4-10.2); Carbon Dioxide 28 mmol/L (22.0-30.0); Chloride 99 mmol/L (98-107); Estimated Glomerular Filt Rate 62 ml/min (>60); GFR (African American) 75 ML/MIN (>60); Glucose 102 mg/dl (74-100); Potassium 4.4 mmoL/L (3.5-5.1); Sodium 138 mmol/L (136-145)
[2022-03-11 13:55] LABS: NT Pro Brain Natriuretic Pep. 623 pg/mL (0-125)
== END ==
PROVIDERS: PCP Internal Medicine Adolescent Medicine; Visit Provider Physician Assistant
DX: E78.5 Hyperlipidemia, unspecified (principal); I10 Essential (primary) hypertension; R42 Dizziness and giddiness; R06.02 Shortness of breath; I20.8 Other forms of angina pectoris
CPT/HCPCS: 36415; 80048; 83880

== ENCOUNTER → 2022-07-05 12:27 | Outpatient (CLI) | payer MEDICARE, SELFPAY ==
--- NOTE | 2022-07-05 12:45 | CA_ITS ---
FINAL REPORT TECHNIQUE: Shields scale, color and spectral doppler images of the bilateral carotid arteries were obtained. CLINICAL HISTORY: near syncope, declined CTA FINDINGS: Peak systolic velocity in the right internal carotid artery is 91 cm/sec. The internal carotid to common carotid artery ratio is 1.25. There is no significant carotid artery stenosis and no significant plaque formation. The right vertebral artery is normal in direction. Peak systolic velocity in the left internal carotid artery is 120 cm/sec. The internal carotid to common carotid artery ratio is 1.46. There is no significant carotid artery stenosis and no significant plaque formation. The left vertebral artery is normal in direction. IMPRESSION: No ultrasound evidence of hemodynamically significant carotid artery stenosis. Normal peak systolic velocities and normal internal to common carotid artery ratios bilaterally. Reviewed, Interpreted and Dictated by Ana M Grubbs MD Transcribed by Ashanti Stanley Authenticated and [facility]
== END ==
PROVIDERS: PCP Internal Medicine Adolescent Medicine; Visit Provider Specialist
DX: E78.5 Hyperlipidemia, unspecified (principal); I10 Essential (primary) hypertension; I25.10 Atherosclerotic heart disease of native coronary artery without angina pectoris; R01.1 Cardiac murmur, unspecified; R42 Dizziness and giddiness; R55 Syncope and collapse
CPT/HCPCS: 93880

== ENCOUNTER 2022-09-05 17:08 | Emergency (ER) | payer MEDICARE, SELFPAY ==
[2022-09-05 17:14] VITALS: BP 129/50; PULSE 64; O2SAT 98
[2022-09-05 17:20] VITALS: BP 129/50; PULSE 62; RESP 20; TEMP 36.8; O2SAT 96; BMI 36.1
[2022-09-05 17:31] VITALS: BP 111/49; PULSE 60; O2SAT 99
--- NOTE | 2022-09-05 17:47 | HMH.EDGENADL ---
Discharge Plan Disposition Patient Disposition: Home, Self-Care Condition: Good Prescriptions Prescriptions: No Action aspirin 81 mg tablet,delayed release (DR/EC) 81 mg PO QDAY levothyroxine 100 mcg tablet 100 mcg PO QDAY omeprazole 40 mg capsule,delayed release(DR/EC) 40 mg PO QDAY losartan 50 mg tablet 50 mg PO QDAY furosemide 20 mg tablet 20 mg PO TID Qty: 90 3RF Rx Instructions: per dr cabrera metoprolol tartrate 50 mg tablet 50 mg PO BID Label Comments: TAKE 1 TABLET BY MOUTH TWICE DAILY bupropion HCl 100 mg tablet sustained-release 12 hr 100 mg PO BID citalopram 20 mg tablet 20 mg PO DAILY Label Comments: TAKE 1 TABLET BY MOUTH ONCE DAILY multivitamin Tablet 1 tab PO DAILY cholecalciferol (vitamin D3) 50 mcg (2,000 unit) capsule 50 mcg PO DAILY ascorbic acid (vitamin C) 500 mg capsule 500 mg PO DAILY B12 Active 1,000 mcg tablet,chewable 1,000 mcg PO DAILY zinc 50 mg tablet 50 mg PO DAILY nitroglycerin 0.4 mg tablet, sublingual 0.4 mg sublingual Q5M PRN (Reason: chest pain) Qty: 25 0RF Rx Instructions: do not exceed 3 doses per episode atorvastatin 10 mg tablet See Rx Instructions .ROUTE .COMPLEX Qty: 90 3RF Dose Instruction: Take 1 tablet by mouth once daily Rx Instructions: Take 1 tablet by mouth once daily spironolactone 25 mg tablet 25 mg PO DAILY Qty: 90 3RF Referrals Follow up/Referrals: Yossi Cabrera MD [Primary Care Provider] - See instructions Activity Restrictions/Add. Instructions Additional Instructions/Restrictions: Gently cleanse the wound daily with mild soapy water and apply antibiotic ointment and a nonadhesive dressing and keep the splint on as well. Clinical Impressions Clinical Impression: Traumatic hematoma of right upper arm Discharge ED Provider: Be Jones General Adult HPI General Chief complaint: Recheck/Abnormal Lab/Rx Stated complaint: Right broken arm Bleeding Time Seen by Provider: 09/05/22 17:23 Mode of Arrival: Ambulatory Source of Information: Patient Limitations: No Limitations Description of Symptoms (Recalled from ER Triage Doc. by RN): pt to ed c/o right arm bleeding. pt states she had a previous fall that resulted ia broken humerus. pt states she noticed her arm bleeding today. History of Present Illness HPI narrative: Patient presents with bleeding from the right arm that began earlier this evening. She recently sustained a fracture to the right humerus and has the arm splinted and was probing beneath the splint after she felt some moisture there and noticed blood on the Q-tip. She denies worsening pain or new trauma to the arm symptoms are described as mild and without exacerbating alleviating factors. Related Data Home Medications Medication Instructions Recorded Confirmed aspirin 81 mg tablet,delayed 81 mg PO QDAY Heart disease 05/11/17 08/09/22 release levothyroxine 100 mcg tablet 100 mcg PO QDAY thyroid 05/11/17 08/09/22 omeprazole 40 mg capsule,delayed 40 mg PO QDAY stomach 05/11/17 08/09/22 release metoprolol tartrate 50 mg tablet 50 mg PO BID High blood pressure 06/04/19 08/09/22 bupropion HCl 100 mg tablet,12 hr 100 mg PO BID 04/24/21 08/09/22 sustained-release ascorbic acid (vitamin C) 500 mg 500 mg PO DAILY 05/27/21 08/09/22 capsule cholecalciferol (vitamin D3) 50 50 mcg PO DAILY 05/27/21 08/09/22 mcg (2,000 unit) capsule citalopram 20 mg tablet 20 mg PO DAILY 05/27/21 08/09/22 mecobalamin (vitamin B12) 1,000 1,000 mcg PO DAILY 05/27/21 08/09/22 mcg chewable tablet (B12 Active) multivitamin 1 tab PO DAILY 05/27/21 08/09/22 zinc 50 mg tablet 50 mg PO DAILY 05/27/21 08/09/22 losartan 50 mg tablet 50 mg PO QDAY High blood pressure 01/13/22 08/09/22 Previous Rx's Medication Instructions Recorded nitroglycerin 0.4 mg sublingual 0.4 mg sublingual Q5M PRN chest 02/23/22 tablet pain
[2022-09-05 18:07] VITALS: BP 111/49; PULSE 60; RESP 16; TEMP 36.8; O2SAT 99
== END 2022-09-05 18:08 | disposition home or self-care (01) ==
PROVIDERS: Emergency Provider Emergency Medicine; PCP Internal Medicine Adolescent Medicine
DX: S40.021A Contusion of right upper arm, initial encounter (principal); W19.XXXA Unspecified fall, initial encounter
CPT/HCPCS: 99283

== ENCOUNTER 2022-11-10 11:00 | Outpatient (RCR) | payer MEDICARE, SELFPAY | END 2022-11-10 11:05 | disposition home or self-care (01) | LOC: OT 11:00 | PROVIDERS: PCP Internal Medicine Adolescent Medicine; Visit Provider Orthopaedic Surgery Orthopaedic Trauma | DX: S42.301A Unspecified fracture of shaft of humerus, right arm, initial encounter for closed fracture (principal); G56.31 Lesion of radial nerve, right upper limb; R20.2 Paresthesia of skin | CPT/HCPCS: 97010; 97014; 97110; 97140; 97164; 97167; 97530; G0283 ==

== ENCOUNTER 2023-02-04 18:38 | Emergency (ER) | payer MEDICARE, SELFPAY ==
[2023-02-04 18:38] VITALS: BP 135/47; PULSE 54; RESP 18; TEMP 36.6; O2SAT 97; BMI 35.6
[2023-02-04 19:33] VITALS: BP 128/60; PULSE 66; O2SAT 97
--- NOTE | 2023-02-04 20:17 | CT_ITS ---
PROCEDURE INFORMATION: Exam: CT Abdomen And Pelvis With Contrast Exam date and time: 02/04/2023 8:50 PM Age: 72 years old Clinical indication: Abdominal pain; Additional info: L groin pain x3 months TECHNIQUE: Imaging protocol: Computed tomography of the abdomen and pelvis with contrast. Total images: 312 Radiation optimization: All CT scans at this facility use at least one of these dose optimization techniques: automated exposure control; mA and/or kV adjustment per patient size (includes targeted exams where dose is matched to clinical indication); or iterative reconstruction. Contrast material: ISOVUE; Contrast volume: 75 ml; Contrast route: IV; REPORTING DATA: Count of CT and Cardiac NM exams in prior 12 months: This patient has received [address] and 0 known cardiac nuclear medicine studies in the 12 months prior to the current study. COMPARISON: US ABDOMEN COMPLETE 06/26/2021 9:10 AM FINDINGS: Lungs: Lung bases are clear. Heart: Normal heart size. Mitral annular calcifications. Liver: Slight decreased liver attenuation from phase of contrast or steatosis. Normal liver size and contour. No mass. Gallbladder and bile ducts: Status post cholecystectomy. No bile duct dilatation. Pancreas: Normal. No ductal dilation. Spleen: Normal. No splenomegaly. Adrenal glands: Normal. No mass. Kidneys and ureters: Dilated bilateral renal pelvises, most likely physiologic. No hydronephrosis, nephrolithiasis, or renal mass. No ureteral stones. Stomach and bowel: Unremarkable stomach and duodenum. No ileus or bowel obstruction. Small bowel appears within normal limits. Unremarkable terminal ileum. Mild colonic stool burden. Mild scattered colonic diverticulosis without acute diverticulitis. Unremarkable rectum. Appendix: Normal appendix. Intraperitoneal space: Unremarkable. No free air. No significant fluid collection. Vasculature: Mildly atherosclerotic aorta without aneurysm. Pelvic phleboliths. Lymph nodes: No pathologic lymphadenopathy. Urinary bladder: Unremarkable as visualized. Reproductive: Atrophic uterus and ovaries. No adnexal mass. Bones/joints: Status post median sternotomy. Osteopenia. Mild thoracolumbar scoliosis. Moderate degenerative changes bilateral hips with chondrocalcinosis. Fixation balls through the right SI joint. Status post posterior fusion L4-L5. Severe degenerative changes thoracolumbar spine. Soft tissues: Remote calcified focus of fat necrosis adjacent to the rectum, axial image 82. No inguinal hernia, mass, or lymphadenopathy. Very tiny fat containing umbilical hernia. Diffuse diastasis of the rectus fascia. Asymmetric right rectus abdominus muscle atrophy. IMPRESSION: 1. No acute intra-abdominal or pelvic process. 2. Study does not provide etiology for left groin pain. 3. Multiple chronic and incidental findings.
--- NOTE | 2023-02-04 20:24 | HMH.EDGENADL ---
Discharge Plan Disposition Patient Disposition: Home, Self-Care Prescriptions Prescriptions: New cefdinir 300 mg capsule 300 mg PO BID 7 Days Qty: 14 0RF lidocaine 5 % adhesive patch,medicated 1 patch topical DAILY Qty: 15 0RF Rx Instructions: leave on most painful area for up to 12 hrs No Action aspirin 81 mg tablet,delayed release (DR/EC) 81 mg PO QDAY levothyroxine 100 mcg tablet 100 mcg PO QDAY omeprazole 40 mg capsule,delayed release(DR/EC) 40 mg PO QDAY losartan 50 mg tablet 50 mg PO QDAY furosemide 20 mg tablet 20 mg PO TID Qty: 90 3RF Rx Instructions: per dr cabrera metoprolol tartrate 50 mg tablet 50 mg PO BID Patient Comments: TAKE 1 TABLET BY MOUTH TWICE DAILY bupropion HCl 100 mg tablet sustained-release 12 hr 100 mg PO BID citalopram 20 mg tablet 20 mg PO DAILY Patient Comments: TAKE 1 TABLET BY MOUTH ONCE DAILY multivitamin Tablet 1 tab PO DAILY cholecalciferol (vitamin D3) 50 mcg (2,000 unit) capsule 50 mcg PO DAILY ascorbic acid (vitamin C) 500 mg capsule 500 mg PO DAILY B12 Active 1,000 mcg tablet,chewable 1,000 mcg PO DAILY zinc 50 mg tablet 50 mg PO DAILY oxycodone 5 mg tablet 5 mg PO Q6H PRN Patient Comments: TAKE 1 TABLET BY MOUTH EVERY 6 HOURS NEEDED FOR SEVERE SHOULDER FRACTURE PAIN nitroglycerin 0.4 mg tablet, sublingual 0.4 mg sublingual Q5M PRN (Reason: chest pain) Qty: 25 0RF Rx Instructions: do not exceed 3 doses per episode atorvastatin 10 mg tablet See Rx Instructions .ROUTE .COMPLEX Qty: 90 3RF Dose Instruction: Take 1 tablet by mouth once daily Rx Instructions: Take 1 tablet by mouth once daily spironolactone 25 mg tablet 25 mg PO DAILY Qty: 90 3RF Referrals Follow up/Referrals: Yossi Cabrera MD [Primary Care Provider] - See instructions Activity Restrictions/Add. Instructions Additional Instructions/Restrictions: Call your family doctor to establish care for this visit to the emergency department and schedule follow-up within 48 hours to ensure improvement. If you have any worsening of your condition or any other concerning signs or symptoms, return to the emergency department or your primary care doctor for further evaluation. Clinical Impressions Clinical Impression: Acute UTI Discharge ED Provider: Josiah,Ross A General Adult HPI General Chief complaint: PAIN Stated complaint: groin pain Time Seen by Provider: 02/04/23 18:46 Mode of Arrival: Ambulatory Source of Information: Patient Limitations: No Limitations Description of Symptoms (Recalled from ER Triage Doc. by RN): Ptpresent with complaints of left side groin pain that started 3 weeks ago. SHe states it has gradually gotten worse and today it is excruciating. Palpable pedal, popliteal and femoral pulses. Leg is warm to touch,no redness noted. Denies any other symptoms. History of Present Illness HPI narrative: 72-year-old female with history of hypertension, hyperlipidemia, CAD, CABG x2 presenting with left groin pain. Been going on for months. Gets worse with any change in position. Denies lower extremity numbness, weakness, tingling, or any left-sided symptoms. Does not think she is ever had a catheterization done in her left groin. No swelling, redness, overlying skin changes, or any other concerns. Does not notice anything that makes it better. Related Data Home Medications Medication Instructions Recorded Confirmed aspirin 81 mg tablet,delayed 81 mg PO QDAY Heart disease 05/11/17 11/24/22 release levothyroxine 100 mcg tablet 100 mcg PO QDAY thyroid 05/11/17 11/24/22 omeprazole 40 mg capsule,delayed 40 mg PO QDAY stomach 05/11/17 11/24/22 release metoprolol tartrate 50 mg tablet 50 mg PO BID High blood pressure 06/04/19 11/24/22 bupropion HCl 100 mg tablet,12 hr 100 mg PO BID 04/24/21 11/24/22 sustained-release as
[2023-02-04 20:27] LABS: Basophils % 0.3 % (0.1-2.0); Eosinophils # 0.1 K/mm3 (0.0-0.4); Eosinophils % 1.7 % (0.1-12.0); Hematocrit 37.6 % (37.0-47.0); Hemoglobin 12.7 g/dL (12.2-16.2); Lymphocytes # 1.9 K/mm3 (0.7-4.5); Lymphocytes % 34.2 % (10-50); Mean Corpuscular HGB Conc 33.7 g/dL (31.8-35.4); Mean Corpuscular Volume 94.9 fl (81-99); Mean Platelet Volume 8.6 fl (7.4-10.4); Monocytes # 0.5 K/mm3 (0.1-1.0); Monocytes % 8.1 % (1.7-9.3); Neutrophils # 3.1 K/mm3 (1.8-7.8); Neutrophils % 55.7 % (37.0-80.0); Platelet Count 194 K/mm3 (142-424); Red Blood Count 3.96 M/mm3 (4.20-5.40); Red Cell Distribution Width 14.2 % (11.5-17.5); White Blood Count 5.6 K/mm3 (4.8-10.8)
[2023-02-04 20:28] LABS: Chloride 96 mmol/L (98-107); Potassium 4.5 mmoL/L (3.5-5.1); Sodium 131 mmol/L (136-145)
[2023-02-04 20:30] LABS: Alanine Aminotransferase 26 U/L (12-78); Alkaline Phosphatase 87 U/L (38-126); Aspartate Amino Transferase 41 U/L (14-36); Bilirubin,Total 0.6 mg/dl (0.2-1.3); Blood Urea Nitrogen 12 mg/dl (7-17); Creatinine Clearance Estimated 71 mL/min (50-200); Estimated Glomerular Filt Rate 71 ml/min (>60); GFR (African American) 86 ML/MIN (>60)
[2023-02-04 20:31] LABS: Albumin Level 4.2 g/dl (3.5-5.0); Albumin/Globulin Ratio 1.5 (1.1-1.8); Anion Gap 11.5 mEq/L (5-15); Calcium 9.5 mg/dl (8.4-10.2); Carbon Dioxide 28 mmol/L (22.0-30.0); Globulin 2.8 g/dL (1.3-3.2); Glucose 92 mg/dl (74-100)
--- NOTE | 2023-02-04 20:46 | PC.NURSE ---
patient gone to CT at this time.
[2023-02-04 21:00] VITALS: BP 118/52; PULSE 56; O2SAT 98
[2023-02-04 21:11] LABS: Microscopic, Urine URINE MICROSCOPIC (MICROSCOPIC)
[2023-02-04 21:16] LABS: Appearance,Urine CLEAR (Clear); Bilirubin,Urine Negative (Negative); Blood, Urine Negative (Negative); Color,Urine YELLOW (Yellow); Glucose,Urine (UA) Negative (Negative); Ketones,Urine Negative (Negative); Leukocyte Esterase,Urine 2+ (Negative); Nitrate,Urine Negative (Negative); PH,Urine 6.5 (5.0-8.5); Protein,Urine Negative (Negative); Urobilinogen,Urine 0.2 EU/dl (0.2)
--- NOTE | 2023-02-04 21:30 | PC.NURSE ---
assisted patient to the restroom.
[2023-02-04 21:42] LABS: Squamous Epithelial Cell,Urine Occasional #/hpf (0-5)
[2023-02-04 21:43] LABS: Bacteria,Urine Trace /lpf
[2023-02-04 22:31] VITALS: BP 102/62
--- NOTE | 2023-02-04 22:36 | PC.NURSE ---
in room talking with patient at this time.
[2023-02-04 22:48] VITALS: BP 103/73; PULSE 58; RESP 16; TEMP 36.6; O2SAT 98
== END 2023-02-04 23:03 | disposition home or self-care (01) ==
PROVIDERS: Emergency Provider Emergency Medicine; PCP Internal Medicine Adolescent Medicine
DX: N39.0 Urinary tract infection, site not specified (principal); I10 Essential (primary) hypertension; I25.10 Atherosclerotic heart disease of native coronary artery without angina pectoris; E78.5 Hyperlipidemia, unspecified; I65.29 Occlusion and stenosis of unspecified carotid artery; F41.9 Anxiety disorder, unspecified; K21.9 Gastro-esophageal reflux disease without esophagitis; R01.1 Cardiac murmur, unspecified; E11.9 Type 2 diabetes mellitus without complications
CPT/HCPCS: 74177; 80053; 81001; 85025; 87086; 96374; 96375; 99285; J0131; Q9967

== ENCOUNTER → 2023-03-24 12:38 | Outpatient (CLI) | payer MEDICARE, SELFPAY ==
--- NOTE | 2023-03-24 12:44 | XR_ITS ---
FINAL REPORT CLINICAL HISTORY: Lt inquinal pain, sacoilitis, spondyalithesis lumbar region FINDINGS: Left hip Three views were obtained. There is no acute fracture or dislocation. There is mild joint space narrowing. There is a small osteophyte at the inferior margin of the femoral head. IMPRESSION: Degenerative changes as above. Reviewed, Interpreted and Dictated by Shakeel Rose MD Transcribed by Venessa De La Rosa Authenticated and [facility]
--- NOTE | 2023-03-24 12:44 | XR_ITS ---
FINAL REPORT CLINICAL HISTORY: LT INQUINAL PAIN,SACOILITIS,SPONDYALITHESIS LUMBAR REGION FINDINGS: Sacroiliac joints Three views were obtained. There is no acute fracture or dislocation. There is posterior fusion hardware bridging L4-5. There are advanced changes of degenerative disc disease at L5-S1. Fusion hardware is seen bridging the right sacroiliac joint. IMPRESSION: Postsurgical changes as above. Reviewed, Interpreted and Dictated by Shakeel Rose MD Transcribed by Venessa De La Rosa Authenticated and [facility]
--- NOTE | 2023-03-24 12:44 | XR_ITS ---
FINAL REPORT CLINICAL HISTORY: Lt inquinal pain, sacoilitis, spondyalithesis lumbar region FINDINGS: LUMBAR SPINE Five views demonstrate no acute fracture. There is posterior fusion hardware bridging L4-5. There is 22 degrees lumbar scoliosis convex to the right. There is fusion of the right sacroiliac joint. There are moderate hypertrophic changes at the endplates at L4-5 and L5-S1. There is no malalignment. IMPRESSION: Degenerative and postsurgical changes as above. Reviewed, Interpreted and Dictated by Shakeel Rose MD Transcribed by Venessa De La Rosa Authenticated and [facility]
== END ==
PROVIDERS: PCP Internal Medicine Adolescent Medicine; Visit Provider Internal Medicine Adolescent Medicine
DX: R10.32 Left lower quadrant pain (principal); M46.1 Sacroiliitis, not elsewhere classified; M43.16 Spondylolisthesis, lumbar region
CPT/HCPCS: 72110; 72202; 73502

== ENCOUNTER 2023-05-30 13:20 | Outpatient (CLI) | payer MEDICARE, SELFPAY ==
--- NOTE | 2023-05-30 13:26 | US_ITS ---
PROCEDURE: US TRANSVAGINAL CLINICAL INDICATION: PELVIC PAIN COMPARISON: No exams were available for comparison FINDINGS: Transvaginal sonographic images of the pelvis were obtained. UTERUS: 5.5cm x 2.9cmx 2.4cm with a combined endometrial thickness of 3.6mm. A 6 mm nabothian cyst is seen in the cervix. LEFT OVARY: Was not visualized RIGHT OVARY: Was not visualized Both ovaries were not seen today. There is no fluid in the cul-de-sac. IMPRESSION: 1. Anteverted small uterus. The endometrium is thin. 2. The ovaries were not visualized today. 3. No fluid in the cul-de-sac. Dictated by: Vel Valente MD 05/30/2023 19:16 Vel Valente MD in OV 05/30/2023 19:16
== END 2023-05-30 23:59 ==
LOC: RAD 13:21
PROVIDERS: PCP Internal Medicine Adolescent Medicine; Visit Provider Internal Medicine Adolescent Medicine
DX: R10.2 Pelvic and perineal pain (principal)
CPT/HCPCS: 76830

== ENCOUNTER 2023-08-17 08:05 | Day surgery (SDC) | payer MEDICARE, SELFPAY ==
[2023-08-16 11:57] VITALS: BMI 35.9
[2023-08-17 08:22] VITALS: BP 140/72; PULSE 60; RESP 18; TEMP 36.8; O2SAT 97
[2023-08-17] MEDS: LACTATED RINGERS 1000ML 1,000 ML 100 ML IV (08:34)
--- NOTE | 2023-08-17 08:36 | EXP.ANES.CKL ---
[facility] Disclaimer: The information contained in this section may have been updated after the patient was seen, as this information can be updated by other users. Medical History (Updated 08/17/23 @ 08:33 by Gilda Del Castillo RN) Sleep apnea History of COVID-19 Bronchitis Hypothyroid Allergies Coronary artery disease T2DM (type 2 diabetes mellitus) Coronary artery disease Carotid stenosis Anxiety Near syncope Palpitations Dizziness Murmur Abnormal EKG GERD (gastroesophageal reflux disease) HLD (hyperlipidemia) HTN (hypertension) Surgical History History of surgery Hx of tonsillectomy History of carpal tunnel release of both wrists History of arthroscopy of both knees History of aortic valve replacement Family History Other Asthma Cancer Diabetes Heart attack Hyperlipidemia Hypertension Kidney disease Social History (Updated 08/17/23 @ 08:33 by Gilda Del Castillo RN) Smoking Status: Never smoker alcohol intake: never substance use type: denies use current occupational status: retired Travel in the last 8 weeks: None household members: spouse housing: house current occupational exposures/hazards: No caffeine: Yes [facility] Anesthesia Checklist Patient Identification Patient Identification: Arm Band, Family and Verbal (Name & ) Structural Data Admitted From: Home Planned Operative Procedure/s: Colonoscopy Consent for Planned Operative Procedure(s) Verified: Yes Verified Documents: Surgical Consent and History and Physical NPO Status Verified Time NPO: 03:30 Chart Verification Results Verified: CBC, BMP, ECG and Chest Xray Additional verifications Fingerstick Blood Glucose: 137 Patient : No Anesthesia Reactions: No Cardiovascular Assessment Heart Sounds: S1 & S2 Pulse Rhythm: Irregular Peripheral Edema: No Airway Assessment Mallampati Score:: Class II C-Spine Mobility Assessed: Yes (FROM) TMJ Mobility Assessed: Yes Dentition: Good Dentition (Nothing loose per pt.) Neurological Assessment Level of Consciousness: Awake, Alert, Appropriate and Follows Commands Hx Seizures: No Numbness or tingling in extremities: No Anesthesia Plan Anesthesia Plan: Verified ASA Class: III Anesthesia Type: MAC
[2023-08-17 09:26] VITALS: O2SAT 97
--- NOTE | 2023-08-17 09:48 | P.PCN_ITS ---
Procedure: Date: 08/17/23 Patient Date of :: 1950 Procedure Performed:: Colonoscopy Indications:: The patient is a 9-year-old who presents for surveillance colonoscopy for personal history of colon polyps. Performing Provider:: Hasmukh Veras MD Referring Provider:: Zach Cabrera MD Sedation:: See RN records Procedure:: After placing the patient in the left lateral decubitus position, the colonoscop y was gently inserted into the rectum and under direct visualization advanced to the cecum which was identified by transillumination in the right lower quadrant, identification of the ileocecal valve, appendiceal orifice, and cecal strap. Color, texture, mucosa, and anatomy of the colon were carefully examined with the scope. Findings:: The quality of the bowel preparation was excellent. There was a diminutive (2 to 3 mm) sessile polyp in the transverse colon. The polyp was removed by cold forceps. Resection was complete and the polyp was retrieved. There were scattered small diverticula seen in the sigmoid colon. The remaining colon appeared normal. On retroflexion view there were internal hemorrhoids seen in the rectum. Impression: Polyp in the transverse colon Diverticulosis of the sigmoid colon Recommendations:: Await pathology results Higher fiber diet Repeat colonoscopy in 5 years for surveillance Complications:: None Estimated blood obtained (mL): 0 Colonoscopy Component Colonoscopy Component Was a colonoscopy performed during today's procedure?: Yes Recommended follow up colonoscopy of at least 10 years?: Yes
[2023-08-17 09:50] VITALS: BP 117/58; PULSE 59; RESP 14; TEMP 36.6; O2SAT 97
[2023-08-17 10:00] VITALS: BP 117/60; PULSE 54; RESP 16; O2SAT 97
[2023-08-17 10:10] VITALS: BP 113/62; PULSE 57; RESP 16; O2SAT 97
[2023-08-17 10:17] VITALS: BP 121/47; PULSE 57; RESP 16; TEMP 36.7; O2SAT 97
[2023-08-17 12:02] LABS: POC Glucose,Bedside 137 (70-110)
== END 2023-08-17 10:20 | disposition home or self-care (01) ==
PROVIDERS: PCP Internal Medicine Adolescent Medicine; Visit Provider Internal Medicine
PROC: 0DJD8ZZ Inspection of Lower Intestinal Tract, Via Natural or Artificial Opening Endoscopic (ICD-10-PCS; CPT 45378; principal; 2023-08-17 09:30)
DX: Z12.11 Encounter for screening for malignant neoplasm of colon (principal); Z86.010 Personal history of colon polyps; K57.30 Diverticulosis of large intestine without perforation or abscess without bleeding; K63.5 Polyp of colon; E11.9 Type 2 diabetes mellitus without complications
CPT/HCPCS: 45380; 82962; 88305

== ENCOUNTER 2023-08-23 11:35 | Emergency (ER) | payer MEDICARE, SELFPAY ==
[2023-08-23 11:36] VITALS: BP 117/47; PULSE 61; RESP 18; TEMP 36.6; O2SAT 96; BMI 35.3
--- NOTE | 2023-08-23 11:45 | PC.NURSE ---
DR MARTINEZ AT BEDSIDE
--- NOTE | 2023-08-23 11:49 | XR_ITS ---
FINAL REPORT CLINICAL HISTORY: fall, right hjand pain radially COMPARISON: None FINDINGS: AP, lateral and oblique views of the right hand were obtained. There is no prior exam for comparison. There is no acute fracture or dislocation. There is moderate hypertrophic change of the basilar joint, as well as moderate degenerative changes involving the DIP and PIP joints. There is a cortical irregularity of the articular surface of the distal radius as described on the wrist films of the same date, that may represent a subtle nondisplaced fracture. IMPRESSION: It hypertrophic change of the basilar joint, with moderate degenerative change in the DIP and PIP joints as well. Cortical irregularity of the articular surface of the distal radius described on wrist films, that may represent a subtle nondisplaced fracture. Reviewed, Interpreted and Dictated by Shakeel Rose MD Transcribed by Nicole Wiseman Authenticated and [facility]
--- NOTE | 2023-08-23 11:49 | XR_ITS ---
FINAL REPORT CLINICAL HISTORY: fall, distal radius pain COMPARISON: None FINDINGS: AP and lateral views of the right forearm are obtained. There is no prior exam for comparison. There is no acute osseous abnormality of the right forearm. The soft tissues appear normal. Osteopenia is present. IMPRESSION: No acute osseous abnormality of the right forearm. Osteopenia. Reviewed, Interpreted and Dictated by Shakeel Rose MD Transcribed by Nicole Wiseman Authenticated and [facility]
--- NOTE | 2023-08-23 11:49 | XR_ITS ---
FINAL REPORT CLINICAL HISTORY: fall, right wrist pain radially COMPARISON: None FINDINGS: AP, oblique, and lateral views of the right wrist were obtained. There is no prior exam for comparison. There is moderate hypertrophic change of the basilar joint. There is significant soft tissue swelling involving the dorsum of the wrist. There is a subtle cortical discontinuity of the articular surface of the distal radius, that may represent a subtle fracture, although a definite fracture is difficult to visualize given the patient's osteopenia. The joint spaces are preserved. IMPRESSION: Subtle cortical discontinuity the articular surface of the distal radius, may represent a subtle fracture. Significant dorsal soft tissue swelling of the wrist. Reviewed, Interpreted and Dictated by Shakeel Rose MD Transcribed by Nicole Wiseman Authenticated and [facility]
--- NOTE | 2023-08-23 11:52 | ED_ITS ---
Discharge Plan Disposition Patient Disposition: Home, Self-Care Chief Complaint: Fall Prescriptions Prescriptions: No Action aspirin 81 mg tablet,delayed release (DR/EC) 81 mg PO QDAY levothyroxine 100 mcg tablet 100 mcg PO QDAY omeprazole 40 mg capsule,delayed release(DR/EC) 40 mg PO QDAY losartan 50 mg tablet 50 mg PO QDAY furosemide 20 mg tablet 20 mg PO TID Qty: 90 3RF Rx Instructions: per dr kemp metoprolol tartrate 50 mg tablet 50 mg PO BID Patient Comments: TAKE 1 TABLET BY MOUTH TWICE DAILY bupropion HCl 100 mg tablet sustained-release 12 hr 100 mg PO BID citalopram 20 mg tablet 20 mg PO DAILY Patient Comments: TAKE 1 TABLET BY MOUTH ONCE DAILY multivitamin Tablet 1 tab PO DAILY cholecalciferol (vitamin D3) 50 mcg (2,000 unit) capsule 50 mcg PO DAILY ascorbic acid (vitamin C) 500 mg capsule 500 mg PO DAILY B12 Active 1,000 mcg tablet,chewable 1,000 mcg PO DAILY zinc 50 mg tablet 50 mg PO DAILY nitroglycerin 0.4 mg tablet, sublingual 0.4 mg sublingual Q5M PRN (Reason: chest pain) Qty: 25 0RF Rx Instructions: do not exceed 3 doses per episode atorvastatin 10 mg tablet See Rx Instructions .ROUTE .COMPLEX Qty: 90 3RF Dose Instruction: Take 1 tablet by mouth once daily Rx Instructions: Take 1 tablet by mouth once daily spironolactone 25 mg tablet 25 mg PO DAILY Qty: 90 3RF Clenpiq 10 mg-3.5 gram- 12 gram/175 mL solution 175 ml PO DAILY Qty: 350 0RF Rx Instructions: take first dose at 5-9PM evening before colonoscopy; 2nd dose the next day approximately 5 hrs before colonoscopy Referrals Follow up/Referrals: Yossi Kemp MD [Primary Care Provider] - See instructions Patrick Houser DO [Staff Physician] - See instructions Activity Restrictions/Add. Instructions Additional Instructions/Restrictions: Call your family doctor to establish care for this visit to the emergency department and schedule follow-up within 48 hours to ensure improvement. If you have any worsening of your condition or any other concerning signs or symptoms, return to the emergency department or your primary care doctor for further evaluation. Call Dr. Houser's office for routine follow-up in 2 to 3 weeks to make sure healing okay. Clinical Impressions Clinical Impression: Other intraarticular fracture of lower end of right radius, initial encounter for closed fracture, Fall Discharge ED Provider: Be Rahman General Adult HPI General Chief complaint: Fall Stated complaint: AO4/16@home, pain in Rt arm Time Seen by Provider: 08/23/23 11:39 History of Present Illness HPI narrative: Is a 72-year-old female no relevant medical history presenting with right upper extremity pain after fall. Patient states that she was walking on carpet just prior to arrival, tripped over her own feet, caught herself on her right arm. Had immediate pain. Struck her nose in the process. No loss of consciousness. It is primarily in her distal wrist/forearm and into her hand. From previous injury last year in 2022, patient having difficulty with range of motion of right thumb, but does not feel this is any worse today. Tenderness is moderate, made worse with movement of wrist and thumb, has not taken anything for the pain Please note that above description of symptoms, in this electronic medical record under categorization of recalled from ER triage doctor by RN are reflective of an initial nursing assessment, however, is not reflective of my full history and physical exam that was personally taken and clarified. Consequentially, this preceding description of symptoms, which may include the patient's categorized chief complaint in the EMR, do not reflect my personal clinical impression, and the ultimate description of history of present illness and patient stated complaints should be deferred to this section of the note. Unless stated otherwise or congruent with this section of the note, additional signs, symptoms, or incongruence should be interpreted as inaccurate with my clinical impression. Related Data Home Medications Medication Instructions Recorded Confirmed aspirin 81 mg tablet,delayed 81 mg PO QDAY Heart disease 05/11/17 08/17/23 release levothyroxine 100 mcg tablet 100 mcg PO QDAY thyroid 05/11/17 08/17/23 omeprazole 40 mg capsule,delayed 40 mg PO QDAY stomach 05/11/17 08/17/23 release metoprolol tartrate 50 mg tablet 50 mg PO BID High blood pressure 06/04/19 08/17/23 bupropion HCl 100 mg tablet,12 hr 100 mg PO BID 04/24/21 08/17/23 sustained-release ascorbic acid (vitamin C) 500 mg 500 mg PO DAILY 05/27/21 08/17/23 capsule cholecalciferol (vitamin D3) 50 50 mcg PO DAILY 05/27/21 08/17/23 mcg (2,000 unit) capsule citalopram 20 mg tablet 20 mg PO DAILY 05/27/21 08/17/23 mecobalamin (vitamin B12) 1,000 1,000 mcg PO DAILY 05/27/21 08/17/23 mcg chewable tablet (B12 Active) multivitamin 1 tab PO DAILY 05/27/21 08/17/23 zinc 50 mg tablet 50 mg PO DAILY 05/27/21 08/17/23 losartan 50 mg tablet 50 mg PO QDAY High blood pressure 01/13/22 08/17/23 Previous Rx's Medication Instructions Recorded nitroglycerin 0.4 mg sublingual 0.4 mg sublingual Q5M PRN chest 02/23/22 tablet pain #25 tabs furosemide 20 mg tablet 20 mg PO TID #90 tabs 04/28/22 atorvastatin 10 mg tablet See Rx Instructions .Route 04/22/23 .COMPLEX #90 tabs spironolactone 25 mg tablet 25 mg PO DAILY #90 tabs 05/12/23 sod picosulf 10 mg-magnes 3.5 175 ml PO DAILY bowel prep 2 doses 07/29/23 gram-citric 12 gram/175 mL oral #350 mL solution (Clenpiq) Allergies Allergy/AdvReac Type Severity Reaction Status Date / Time codeine [CODEINE] Allergy Unknown SEVERE Verified 08/17/23 08:17 STOMACH PAIN morphine [MORPHINE] Allergy Unknown SEVERE Verified 08/17/23 08:17 STOMACH PAIN Sulfa (Sulfonamide Allergy Unknown I-RASH Verified 08/17/23 08:17 Antibiotics) [SULFA (SULFONAMIDE ANTIBIOTICS)] [facility] Disclaimer: The information contained in this section may have been updated after the patient was seen, as this information can be updated by other users. Medical History (Updated 08/23/23 @ 13:42 by Be Rahman MD) Sleep apnea History of COVID-19 Bronchitis Hypothyroid Allergies Coronary artery disease T2DM (type 2 diabetes mellitus) Coronary artery disease Carotid stenosis Anxiety Near syncope Palpitations Dizziness Murmur Abnormal EKG GERD (gastroesophageal reflux disease) HLD (hyperlipidemia) HTN (hypertension) Surgical History History of surgery Hx of tonsillectomy History of carpal tunnel release of both wrists History of arthroscopy of both knees History of aortic valve replacement Family History Other Asthma Cancer Diabetes Heart attack Hyperlipidemia Hypertension Kidney disease Social History (Updated 08/17/23 @ 08:33 by Gilda Del Castillo RN) Smoking Status: Never smoker alcohol intake: never substance use type: denies use current occupational status: retired Travel in the last 8 weeks: None household members: spouse housing: house current occupational exposures/hazards: No caffeine: Yes ROS Obtained: Yes All systems reviewed & no additional complaints except as documented Physical Exam General General appearance: alert and in no apparent distress Head Head exam: atraumatic and normocephalic Eye Eye exam: Present normal appearance, PERRL and EOMI ENT ENT exam: Present mucous membranes moist Neck Neck exam: Present normal inspection, full ROM and trachea midline Respiratory Respiratory exam: Absent respiratory distress, wheezes, stridor, accessory muscle use or prolonged expiratory phase Cardiovascular Cardiovascular exam: Present normal rhythm Abdominal Exam Abdominal exam: Present soft; Absent distention, tenderness, guarding, rebound or rigidity Extremities Exam Extremities exam: Present other (Tenderness with supination of right wrist. Tenderness distal radius hand and radial ulnar joint. Tenderness also at base of first metacarpal. Neurovascularly intact.); Absent edema Neurological Exam Neurological exam: Present alert, oriented X3, CN II-XII intact and normal gait; Absent motor sensory deficit Skin Skin exam: Present warm and dry; Absent diaphoresis or erythema Medical Decision Making Medical Records Medical records reviewed: Yes I reviewed the patient's medical records. Jeff Inquiry Pt receiving controlled substance: No Jeff was queried for this patient: No Vital Signs: 08/23/23 11:36 08/23/23 12:00 Temperature 97.8 F Temperature Source Oral Pulse Rate 57 L Pulse Rate [Right] 61 Respiratory Rate 18 Blood Pressure 135/91 H Blood Pressure [Left Arm] 117/47 L Blood Pressure Mean [Left Arm] 70 Blood Pressure Source [Left Arm] Automatic Cuff 02 Sat by Pulse Oximetry 96 97 Oxygen Delivery Method Room Air Room Air Orders (Tests/Meds): ED MEDICATIONS Discontinued Medications Generic Name Dose Route Start Last Admin Trade Name Freq PRN Reason Stop Dose Admin Acetaminophen 1,000 mg 08/23/23 11:50 08/23/23 11:55 Acetaminophen 325mg/10.15ml Udc PO 08/23/23 11:51 1,000 mg ONCE ONE Administration Ibuprofen 600 mg 08/23/23 11:50 08/23/23 11:55 Ibuprofen 600 Mg Tablet PO 08/23/23 11:51 600 mg ONCE ONE Administration ORDERS Category Date Time Status CT head/brain wo con Stat Cat Scan 08/23/23 11:55 Completed Forearm XR right 2 views [XR forearm RT 2V] Stat Exams 08/23/23 11:49 Completed Hand XR right minimum 3 views [XR hand RT min 3V] Stat Exams 08/23/23 11:49 Completed Wrist XR right minimum 3 views [XR wrist RT min 3V] Exams 08/23/23 11:49 Completed Stat Medical Decision Narrative: Is a 72-year-old female no relevant medical history presenting with right upper extremity pain after fall. Patient states that she was walking on carpet just prior to arrival, tripped over her own feet, caught herself on her right arm. Had immediate pain. Struck her nose in the process. No loss of consciousness. It is primarily in her distal wrist/forearm and into her hand. From previous injury last year in 2022, patient having difficulty with range of motion of right thumb, but does not feel this is any worse today. Tenderness is moderate, made worse with movement of wrist and thumb, has not taken anything for the pain. History obtained with patient and . On arrival, patient hemodynamically stable. Right upper extremity is neurovascularly intact. Range of motion is intact, but limited at radial metacarpal joint secondary to pain. Mild appreciable swelling. Neurologically intact, vascularly intact, good capillary refill. Range of motion intact. Pain with supination of wrist as well. Differential includes fracture, dislocation, sprain, strain, among others. Patient given Tylenol Motrin. Independent rotation of x-rays demonstrates subtle distal radius fracture, no displacement. Appears to be intra-articular with associated swelling. No intracranial hemorrhage on independent interpretation of CT. Nexus C-spine negative. Patient was placed in a prefabricated wrist splint. Because patient at baseline without signs or symptoms of clinical decompensation, deemed appropriate for discharge. Results were relayed to patient who voiced understanding and were agreeable to outpatient management and follow up. I discussed my clinical impression with patient and answered all questions. At this time, the evidence for any other entities in the differential is insufficient to warrant any further testing or ED observation. This was explained as well. Advisory was given that persistent or worsening symptoms require further evaluation. I confirmed the understanding of this discussion.. Critical Care Critical Care Time Critical Care Time: No
[2023-08-23] MEDS: ACETAMINOPHEN 325MG/10.15ML UDC 1000 MG PO (11:55)
[2023-08-23] MEDS: IBUPROFEN 600 MG TABLET PO (11:55)
--- NOTE | 2023-08-23 11:55 | CT_ITS ---
FINAL REPORT TECHNIQUE: multiple axial CT images were performed from the foramen magnum to the vertex without enhancement. CLINICAL HISTORY: fall, hit forehead, no LOC COMPARISON: None FINDINGS: The ventricles are enlarged. There is mild diffuse atrophy. There is periventricular white matter change likely related to small vessel disease. There is no evidence of hemorrhage. No masses are identified. No extra-axial fluid is seen. There is mild mucoperiosteal thickening present in the ethmoid air cells without air-fluid levels consistent with chronic sinusitis. IMPRESSION: Atrophy and chronic changes without acute process. Chronic sinusitis ethmoid air cells. Reviewed, Interpreted and Dictated by Shakeel Rose MD Transcribed by Nicole Wiseman Authenticated and [facility]
[2023-08-23 12:00] VITALS: BP 135/91; PULSE 57; O2SAT 97
--- NOTE | 2023-08-23 12:05 | PC.NURSE ---
Pt gone to RAD
--- NOTE | 2023-08-23 12:05 | PC.NURSE ---
PT TO CT AND XR
--- NOTE | 2023-08-23 12:24 | PC.NURSE ---
PT returned from RAD
[2023-08-23 12:30] VITALS: BP 122/52; PULSE 52; O2SAT 94
[2023-08-23 13:00] VITALS: BP 112/49; PULSE 53; O2SAT 96
[2023-08-23 13:30] VITALS: BP 101/48; PULSE 51; O2SAT 96
--- NOTE | 2023-08-23 13:36 | PC.NURSE ---
Rounded on pt. Updated we are waiting on scan results. No other needs voiced. Call light remains within reach.
--- NOTE | 2023-08-23 13:37 | PC.NURSE ---
Dr. Rahman at to update pt on results
--- NOTE | 2023-08-23 13:42 | PC.NURSE ---
Wrist splint applied to right wrist
[2023-08-23 13:45] VITALS: BP 101/48; PULSE 70; RESP 16; TEMP 36.7; O2SAT 98
== END 2023-08-23 13:54 | disposition home or self-care (01) ==
PROVIDERS: Emergency Provider Emergency Medicine; PCP Internal Medicine Adolescent Medicine
DX: S52.571A Other intraarticular fracture of lower end of right radius, initial encounter for closed fracture (principal); I11.9 Hypertensive heart disease without heart failure; I25.10 Atherosclerotic heart disease of native coronary artery without angina pectoris; E78.5 Hyperlipidemia, unspecified; E03.9 Hypothyroidism, unspecified; K21.9 Gastro-esophageal reflux disease without esophagitis; I65.29 Occlusion and stenosis of unspecified carotid artery; E11.9 Type 2 diabetes mellitus without complications; Z95.5 Presence of coronary angioplasty implant and graft; W18.30XA Fall on same level, unspecified, initial encounter
CPT/HCPCS: 70450; 73090; 73110; 73130; 99284

== ENCOUNTER 2023-08-31 07:28 | Outpatient (RCR) | payer MEDICARE, SELFPAY ==
--- NOTE | 2023-08-31 15:20 | HMH.PTOPEV ---
PT Outpatient Evaluation Rehab PT Outpatient Evaluation Start: 08/31/23 07:52 Freq: Status: Active Protocol: Document 08/31/23 07:52 BREONNA (Rec: 08/31/23 08:47 BREONNA [id number]) E-signed By Mable Masters, PT Outpatient Therapy Subjective History Subjective History This is an initial evaluation for Mireya Schwartz who presents with referral for frequent falls (gait training and core strengthening). Pt reports 2 falls in past 2 years. Both of which caused broken bones. Pt does not use an AD when walking. 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 Pt reports she is very active with walking and negotiating multiple steps each day. Pt denying balance deficits, dizziness, neuropathy, or LOB in past month. Pt reports her two falls were from trips on uneven surfaces. Pt currently with broken wrist d/t her last fall. Pt unsure if she has osteoporosis. PMH: open heart surgery, diabetic (no foot neuropathy), R TKA New diagnosis of cancer in past 12 No months? Hip/Knee Eval MMT bilateral Hip Flexion Strength Grade 4- Good- Hip Abduction Strength Grade 5 Normal Hip Adduction Strength Grade 5 Normal Hip Extension Strength Grade 4 Good Knee Extension Strength Grade 4- Good- Knee Flexion Strength Grade 4- Good- Balance Eval Gait/Posture Asssessment General Gait Observation No Deviations/Normal Assistive Devices None / NA Level of Transfer Assist Independent Timed Up and Go Test 3. Is the Timed Up and Go Test result < yes 12 seconds? Rhomberg Feet Together/Eyes open/Stable Surface pass Feet Together/Eyes Closed/Stable Surface pass Feet Together/Eyes open/Unstable Surface pass Feet Together/Eyes Closed/Unstable pass Surface Dynamic Gait Index Test Protocol Gait Level Surface Normal Query Text: Instructions: Walk at your normal speed from here to the next solange (20'). Grading: Solange the lowest category that applies. Change in Gait Speed Mild Impairment Query Text: Instructions: Begin walking at your normal pace (for 5'), when I tell you go , walk as fast as you can (for 5'). When I tell you slow , walk as slowly as you can (for 5'). Grading: Soalnge the lowest category that applies. Gait with Horizontal Head Turns Normal Query Text: Instructions: Begin walking at your normal pace. When I tell you to look right , keep walking straight, but turn you head to the right. Keep looking to the right unit I tell you look left , then keep walking straight and turn your head to the left. Keep your head to the left until I tell you look straight , then keep walking straight, but return you head to the center. Grading: Solange the lowest category that applies. Gait with Vertical Head Turns Mild Impairment Query Text: Instructions: Begin walking at your normal pace. When I tell you to look up , keep walking staight, but tip your head up. Keep looking up until I tell you to look down , then keep walking straight and tip your head down. Keep your head down until I tell you look straight , then keep walking straight, but return your head to the center. Grading: Solange the lowest category that applies. Gait and Pivot Turn Normal Query Text: Instructions: Begin walking at your normal pace. When I tell you turn and stop , turn as quickly as you can to face the opposite direction and stop. Grading: Solange the lowest category that applies. Step Over Obstacle Mild Impairment Query Text: Instructions: Begin walking at your normal speed. When you come to the shoebox, step over it, not around it and keep walking. Grading: Solange the lowest category that applies. Step Around Obstacles Normal Query Text: Instructions: Begin walking at normal speed. When you come to the first cone (about 6' away), walk around the right side of it. When you come to the second cone (6' past first cone), walk around it to the left. Grading: Solange the lowest category that applies. Steps Mild Impairment Query Text: Instructions: Walk up these stairs as you would at home. At the top, turn around and walk down. Grading: Solange the lowest category that applies. Scoring Dynamic Gait Index Score 20 Miscellaneous Dx PT Eval Objective Objective 5xSTS: 11 seconds SLS: 3s max each side Tandem stance: unable to hold without self corrected LOB Miscellaneous Goals Short Term Goals In 2 weeks pt will: - Hold SLS for 5s to improve functional balance - Improve BLE strength to 4+/5 to improve functional strength - Verbalize no LOB during work to monitor safety Residential Goals In 4 weeks pt will: - Hold SLS for 12s to improve functional balance - Improve BLE strength to 5/5 to increase functional strength - Verbalize no LOB during work to continue monitoring safety with working tasks - Perform higher level balance challenges with IND - Verbalize compliance with HEP - DGI to score of 23 Outpatient Therapy Assessment Impairments Problems/Impairmments Impaired Strength,Impaired Stair Climbing,Impaired Stepping on Uneven Surface, Impaired Running,Impaired Balance,Impaired DGI Score Prognosis Rehab Potential Good Comment Pt with minimal balance deficits and impaired BLE strength. Overall, pt demo'd good functional balance during gait on even surfaces and fair-good balance on uneven surfaces. PT provided pt with HEP focusing on static balance and hip strength. Pt would benefit from skilled OP PT once a week to provide education and maximize safety with mobility. Clinical Impression Consistent with Diagnosis Yes Outpatient Therapy Plan of Care Treatment Plan May Include Therapeutic Exercise Including Home Yes Exercise Program Manual Therapy Techniques Yes Neuromuscular Re-education Yes Therapeutic Activities to Return to Yes Previous Functional/Work Level Gait Training Yes ADL/Self Care Education Yes Thermal Modalities Yes Massage Yes Eval/Re-Eval Yes Aquatic Therapy Yes Frequency Times per week 1 Duration Number of Weeks 4-5 weeks Addendums This patient is a candidate for social No or vocational rehab? Patient/Guardian verbally acknowledges Yes understanding of treatment program and consents to further treatment? Patient/Guardian verbally acknowledges Yes understanding of diagnosis, prognosis and goals for treatment? Eval Complexity PT Charges 72189 - Moderate Complexity Shoulder/Elbow Eval Shoulder Objective Measurements Elbow Objective Measurements PHYSICIAN CERTIFICATION: I certify the specified therapy services for Mireya Schwartz are required, authorized, and reviewed every 30 days.
== END 2023-08-31 09:00 | disposition home or self-care (01) ==
LOC: PT 07:28
PROVIDERS: Visit Provider Internal Medicine Adolescent Medicine
DX: R29.6 Repeated falls (principal); R26.0 Ataxic gait
CPT/HCPCS: 97163

== ENCOUNTER 2023-09-20 11:42 | Outpatient (CLI) | payer MEDICARE, SELFPAY ==
--- NOTE | 2023-09-20 11:47 | XR_ITS ---
FINAL REPORT CLINICAL HISTORY: Rt wrist pain; f/u COMPARISON: 08/23/2023 FINDINGS: Right wrist Three views were obtained. There is no acute fracture or dislocation. There are moderate and severe degenerative changes, worst involving the 1st carpometacarpal joint. The bones are osteopenic. Soft tissue swelling is seen. IMPRESSION: Degenerative changes as detailed above. Reviewed, Interpreted and Dictated by Devyn Garcia III, MD Transcribed by Venessa De La Rosa Authenticated and [facility]
== END 2023-09-20 23:59 | disposition home or self-care (01) ==
PROVIDERS: PCP Internal Medicine Adolescent Medicine; Visit Provider Orthopaedic Surgery
DX: M25.531 Pain in right wrist (principal); W19.XXXA Unspecified fall, initial encounter
CPT/HCPCS: 73110

== ENCOUNTER 2023-09-28 12:16 | Outpatient (CLI) | payer MEDICARE, SELFPAY ==
--- NOTE | 2023-09-28 12:27 | CT_ITS ---
FINAL REPORT TECHNIQUE: The patient was injected with IV contrast. Axial images were obtained through the chest in a PE protocol. 3-D reconstruction images were also performed. Individualized dose reduction techniques using automated exposure control or adjustment of the MA and/or KV according to patient's size were employed. CLINICAL HISTORY: AORTIC STENOSIS,DYSPNEA ON EXERTION,NEWLY HEART MUMUR COMPARISON: None FINDINGS: There is streak artifact from multiple median sternotomy wires. Mediastinal vasculature is adequately opacified. No pulmonary artery filling defects are identified to suggest PE. There is no aortic dissection. There is no axillary adenopathy. There is no hilar or mediastinal adenopathy. The heart size is normal. There are postoperative changes from prior aortic valve repair. A small intimal flap is noted in the ascending aorta best seen on images 30-32 of series 3. There is no pericardial or pleural effusion. Limited images of the upper abdomen are unremarkable. No suspicious infiltrate or nodule is identified. IMPRESSION: No pulmonary embolus or dissection. Short segment contained flap in the anterior ascending aorta appears to represent minimal dissection and may be related to prior surgery. Reviewed, Interpreted and Dictated by Shakeel Rose MD Transcribed by Rosalinda Gutierres Authenticated and [facility]
--- NOTE | 2023-09-28 12:27 | CT_ITS ---
FINAL REPORT TECHNIQUE: Axial images were obtained from the lung apex to the mid abdomen by computed tomography. Coronal reformatted images were obtained. This study was performed with techniques to keep radiation doses as low as reasonably achievable, (ALARA). Individualized dose reduction techniques using automated exposure control or adjustment of mA and/or kV according to the patient''s size were employed. CLINICAL HISTORY: AORTIC STENOSIS,DYSPNEA ON EXERTION,NEWLY MURMUR COMPARISON: None FINDINGS: There are multiple median sternotomy wires. There is no axillary adenopathy. There is no hilar or mediastinal adenopathy. Heart size is normal. There are postoperative changes from prior aortic valve repair. Loop recorder is noted in the medial left hemithorax. There is no pericardial or pleural effusion. No suspicious infiltrate or nodule is identified. Scarring is noted in the lingula. Limited images of the upper abdomen are unremarkable. The gallbladder is absent. IMPRESSION: No acute process. Reviewed, Interpreted and Dictated by Shakeel Rose MD Transcribed by Rosalinda Gutierres Authenticated and [facility]
--- NOTE | 2023-09-28 12:27 | CA_ITS ---
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, abn ekg, HTN,HLD Palpitations, Murmur 2D Dimensions IVSd 1.20 cm F: 0.6-1.0 LVEF (Visual) 67.50 % PWd 1.02 cm F: 0.6 - 1.0 LA Volume 98.80 mL LVDd 3.98 cm F: 3.9 - 5.3 LA Volume Index 55.20 mL/m2 (M/F) 16-34 LVDs 2.51 cm F: 2.2 - 3.5 Left Atrium 5.67 cm F: 2.7 - 3.8 M-Mode Dimensions RVDd 2.08 cm (0.9-2.6) LA Diam 3.89 cm (1.9-4.0) LVDd 4.79 cm (3.5-5.7) LVDs 3.69 cm (3.5-5.7) IVSd 1.52 cm (0.6-1.1) PWd 1.61 cm (0.6-1.1) EF (Teich) 46.00% EPSs 0.17 cm FS 23.00% EDV (Teich) 107.00 mL TAPSE 1.49 (<1.7) ESV (Teich) 57.80 mL LV Diastology E Decel Time 280 (160-240 msec) E/A Ratio 1.43 MED A' 6.90 cm/s LAT A' 6.10 cm/s Aortic Valve ANTONI Index 0.67 cm2/m2 AoV Peak Evan. 258.0 (50-130 cm/s) AO Peak GR. 26.60 mmHg AO Mean GR. 13.40 (<5 mmHg) AO VTI 64.8 (18-25 cm) ANTONI (VTI) 1.23 (2.5-4.5 cm2) Mitral Valve MV A Velocity 88.0 (40-130 cm/s) E/A Ratio 1.43 Pulmonary Valve ME End VMAX 202.0 cm/s Tricuspid Valve TR P. Velocity 286.00 cm/s RAP Estimate 10.00 mmHg RVSP 42.70 mmHg Left Ventricle The left ventricle is normal size. The left ventricular systolic function is normal. The left ventricular ejection fraction is within the normal range. There is increased LV wall thickness. There is normal LV segmental wall motion. Grade 2 diastolic dysfunction is present. LVEF is 60%. Right Ventricle The right ventricle is normal size. The right ventricular systolic function is normal. Atria Left atrium is moderately dilated. Right atrium is mildly dilated. The interatrial shunt is not well visualized. Aortic Valve s/p bioprosthetic AVR. The prosthetic valve is well-seated. Peak velocity 2.6 m/s. Mean AV gradient is 13 mmHg. Max AV gradient is 26 mmHg. No aortic regurgitation is present. Mitral Valve Mild mitral annular calcification. The mitral valve leaflets are mildly thickened. No evidence of mitral valve stenosis. Mild mitral regurgitation. Tricuspid Valve The tricuspid valve leaflets are thin and pliable. Mild tricuspid regurgitation. RVSP is 30-35 mmHg. Pulmonic Valve The pulmonary valve is normal in structure. Trace pulmonic regurgitation. Great Vessels The aortic root is normal in size. The ascending aorta is not well visualized. IVC is normal in size and collapses >50% with inspiration. Pericardium There is no pericardial effusion. Other Information Study Quality: Fair Conclusion Normal biventricular systolic function. Grade 2 diastolic function. Biatrial dilation. s/p bioprosthetic AVR. The prosthetic valve is well-seated (peak velocity 2.6 m/s. Mean AV gradient is 13 mmHg. Max AV gradient is 26 mmHg). Mild mitral annular calcification. The mitral valve leaflets are mildly thickened. Mild MR, mild TR. RVSP is 30-35 mmHg. Electronically signed by : Cris Reno MD 09/28/2023 23:01:04
[2023-09-28 12:40] LABS: Blood Urea Nitrogen 16 mg/dl (7-17); Estimated Glomerular Filt Rate 62 ml/min (>60); GFR (African American) 75 ML/MIN (>60)
[2023-09-28] MEDS: 0.9 % SODIUM CHLORIDE 50 ML VIAL IV (13:40)
[2023-09-28] MEDS: SODIUM CHLORIDE 0.9% 10ML SYR (RAD ONLY) 10 ML IV (13:40)
[2023-09-28] MEDS: IOPAMIDOL-370 (76%);100ML BOTTLE 100 ML IV (13:40)
== END 2023-09-28 23:59 | disposition home or self-care (01) ==
LOC: RAD 12:16
PROVIDERS: PCP Internal Medicine Adolescent Medicine; Visit Provider Internal Medicine Adolescent Medicine
DX: R06.09 Other forms of dyspnea (principal); R01.1 Cardiac murmur, unspecified; R01.2 Other cardiac sounds; Q25.3 Supravalvular aortic stenosis
CPT/HCPCS: 36415; 71250; 71275; 82565; 84520; 93306; Q9967

== ENCOUNTER 2023-10-11 07:49 | Outpatient (CLI) | payer MEDICARE, SELFPAY ==
--- NOTE | 2023-10-11 07:54 | XR_ITS ---
FINAL REPORT CLINICAL HISTORY: Rt Wrist fx COMPARISON: 09/20/2023 FINDINGS: Right wrist Three views were obtained. There is an impaction fracture of the distal radius. Some callus formation is seen at the fracture site. There are severe degenerative changes of the 1st carpometacarpal joint. Moderate degenerative changes are seen elsewhere. IMPRESSION: Fracture of the distal radius with some callus formation. Reviewed, Interpreted and Dictated by Devyn Garcia III, MD Transcribed by Venessa De La Rosa Authenticated and [facility]
== END 2023-10-11 23:59 | disposition home or self-care (01) ==
LOC: RAD 07:49
PROVIDERS: PCP Internal Medicine Adolescent Medicine; Visit Provider Orthopaedic Surgery
DX: M25.531 Pain in right wrist; S52.571D Other intraarticular fracture of lower end of right radius, subsequent encounter for closed fracture with routine healing
CPT/HCPCS: 73110

== ENCOUNTER 2023-12-09 08:40 | Outpatient (CLI) | payer MEDICARE, SELFPAY ==
--- NOTE | 2023-12-09 08:43 | XR_ITS ---
FINAL REPORT TECHNIQUE: Bone densitometry calculations of the lumbar spine and left hip were obtained. CLINICAL HISTORY: SCREENING/POST MENOPAUSAL COMPARISON: None FINDINGS: Using the left forearm, the bone mineral density of the left forearm is 0.359 g/cm2, corresponding to T-score of -4.1. Using the left hip, the bone mineral density of the femoral neck is 0.773 g/cm2, corresponding to a T-score of -0.7. NOTE: T-score: Standard deviation compared with peak bone mass of young adult mean. *Following the recommendations of the International Society of Bone densitometry, classification of hip BMD is based on the lower of two T-scores; total hip or femoral neck. IMPRESSION: Diminished bone mineral density of the left forearm consistent with osteopenia. Normal bone mineral density of the left femoral neck. Reviewed, Interpreted and Dictated by Shakeel Rose MD Transcribed by Nicole Wiseman Authenticated and [facility]
== END 2023-12-09 23:59 | disposition home or self-care (01) ==
LOC: RAD 08:40
PROVIDERS: PCP Internal Medicine Adolescent Medicine; Visit Provider Internal Medicine Adolescent Medicine
DX: Z78.0 Asymptomatic menopausal state (principal)
CPT/HCPCS: 77080

== ENCOUNTER 2024-05-11 10:42 | Emergency (ER) | payer MEDICARE, SELFPAY ==
[2024-05-11 11:03] VITALS: BP 161/71; PULSE 64; RESP 22; TEMP 36.2; O2SAT 97; BMI 35.5
[2024-05-11 12:00] VITALS: BP 121/74; PULSE 50; RESP 16; O2SAT 99
--- NOTE | 2024-05-11 12:12 | HMH.EDGENADL ---
Discharge Plan Disposition Chief Complaint: Extremity Injury, Upper Prescriptions Prescriptions: No Action aspirin 81 mg tablet,delayed release (DR/EC) 81 mg PO QDAY levothyroxine 100 mcg tablet 100 mcg PO QDAY omeprazole 40 mg capsule,delayed release(DR/EC) 40 mg PO QDAY losartan 50 mg tablet 50 mg PO QDAY furosemide 20 mg tablet 20 mg PO TID Qty: 90 3RF Rx Instructions: per dr cabrera metoprolol tartrate 50 mg tablet 50 mg PO BID Patient Comments: TAKE 1 TABLET BY MOUTH TWICE DAILY bupropion HCl 100 mg tablet sustained-release 12 hr 100 mg PO BID citalopram 20 mg tablet 20 mg PO DAILY Patient Comments: TAKE 1 TABLET BY MOUTH ONCE DAILY multivitamin Tablet 1 tab PO DAILY cholecalciferol (vitamin D3) 50 mcg (2,000 unit) capsule 50 mcg PO DAILY ascorbic acid (vitamin C) 500 mg capsule 500 mg PO DAILY B12 Active 1,000 mcg tablet,chewable 1,000 mcg PO DAILY zinc 50 mg tablet 50 mg PO DAILY nitroglycerin 0.4 mg tablet, sublingual 0.4 mg sublingual Q5M PRN (Reason: chest pain) Qty: 25 0RF Rx Instructions: do not exceed 3 doses per episode Clenpiq 10 mg-3.5 gram- 12 gram/175 mL solution 175 ml PO DAILY Qty: 350 0RF Rx Instructions: take first dose at 5-9PM evening before colonoscopy; 2nd dose the next day approximately 5 hrs before colonoscopy atorvastatin 10 mg tablet See Rx Instructions .ROUTE .COMPLEX Qty: 90 3RF Dose Instruction: Take 1 tablet by mouth once daily Rx Instructions: Take 1 tablet by mouth once daily spironolactone 25 mg tablet 25 mg PO DAILY Qty: 90 3RF Referrals Follow up/Referrals: Yossi Cabrera MD [Primary Care Provider] - See instructions Clinical Impressions Clinical Impression: Arterial hemorrhage, Finger laceration, Abrasion forearm Print Language Print Language: Upper Sorbian Discharge ED Provider: Gillian Langley General Adult HPI General Chief complaint: Extremity Injury, Upper Stated complaint: left hand/arm laceration Time Seen by Provider: 05/11/24 11:43 Mode of Arrival: Ambulatory Source of Information: Patient and Significant Other Limitations: No Limitations Description of Symptoms (Recalled from ER Triage Doc. by RN): Pt. presents to the ED after tripping over a box at home while caring glass jars of tomato juice and has a laceration to her left hand and arm. History of Present Illness HPI narrative: 73-year-old female walking with glass jars fell lacerated her hand had significant bleeding at home. Not on any anticoagulants at home. Also sustained some injuries to the left arm was wrapped up prior to my evaluation. Related Data Home Medications ?Medication ?Instructions ?Recorded ?Confirmed aspirin 81 mg tablet,delayed 81 mg PO QDAY Heart disease 05/11/17 05/11/24 release levothyroxine 100 mcg tablet 100 mcg PO QDAY thyroid 05/11/17 05/11/24 omeprazole 40 mg capsule,delayed 40 mg PO QDAY stomach 05/11/17 05/11/24 release metoprolol tartrate 50 mg tablet 50 mg PO BID High blood pressure 06/04/19 05/11/24 bupropion HCl 100 mg tablet,12 hr 100 mg PO BID 04/24/21 05/11/24 sustained-release ascorbic acid (vitamin C) 500 mg 500 mg PO DAILY 05/27/21 05/11/24 capsule cholecalciferol (vitamin D3) 50 50 mcg PO DAILY 05/27/21 05/11/24 mcg (2,000 unit) capsule citalopram 20 mg tablet 20 mg PO DAILY 05/27/21 05/11/24 mecobalamin (vitamin B12) 1,000 1,000 mcg PO DAILY 05/27/21 05/11/24 mcg chewable tablet (B12 Active) multivitamin 1 tab PO DAILY 05/27/21 05/11/24 zinc 50 mg tablet 50 mg PO DAILY 05/27/21 05/11/24 losartan 50 mg tablet 50 mg PO QDAY High blood pressure 01/13/22 05/11/24 Previous Rx's ?Medication ?Instructions ?Recorded nitroglycerin 0.4 mg sublingual 0.4 mg sublingual Q5M PRN chest 02/23/22 tablet pain #25 tabs furosemide 20 mg tablet 20 mg PO TID #90 tabs 04/28/22 sod picosulf 10 mg-magnes 3.5 175 ml PO DAILY bowel prep 2 doses 07/29/23 gram-citric 12 gram/175 mL oral #350 mL solution (Clenpiq) atorvastatin 10 mg tablet See Rx Instructions .Route 04/09/24 .COMPLEX #90 tabs spironolactone 25 mg tablet 25 mg PO DAILY #90 tabs 12/19/24 Allergies Allergy/AdvReac Type Severity Reaction Status Date / Time codeine (CODEINE) Allergy Unknown SEVERE Verified 12/13/23 09:19 STOMACH PAIN morphine (MORPHINE) Allergy Unknown SEVERE Verified 12/13/23 09:19 STOMACH PAIN Sulfa (Sulfonamide Allergy Unknown I-RASH Verified 12/13/23 09:19 Antibiotics) (SULFA (SULFONAMIDE ANTIBIOTICS)) [facility] Disclaimer: The information contained in this section may have been updated after the patient was seen, as this information can be updated by other users. Medical History Sleep apnea History of COVID-19 Bronchitis Hypothyroid Allergies Coronary artery disease T2DM (type 2 diabetes mellitus) Coronary artery disease Carotid stenosis Anxiety Near syncope Palpitations Dizziness Murmur Abnormal EKG GERD (gastroesophageal reflux disease) HLD (hyperlipidemia) HTN (hypertension) Surgical History History of surgery RODS IN BACK AND RIGHT HIP Hx of tonsillectomy History of carpal tunnel release of both wrists History of arthroscopy of both knees History of aortic valve replacement 1 bovine valve(2013) 2nd time 02/15/2020 Family History Other Asthma Cancer Diabetes Heart attack Hyperlipidemia Hypertension Kidney disease Social History Smoking Status: Never smoker alcohol intake: never substance use type: denies use current occupational status: retired Travel in the last 8 weeks: None household members: spouse housing: house current occupational exposures/hazards: No caffeine: Yes Have you lived/traveled outside [place] in past 30 days?: No Contact w/someone who lives/traveled outside [place] past 30 days?: No Exposure to someone with infectious disease in past 14 days?: No Do you have a fever (greater than 100.4 F or 38 C)?: No Have you tested positive for COVID-19: No Exposed to someone with COVID-19 in past 14 days?: No Do you have a sore throat?: No Do you have a cough?: No Do you have any weakness?: No Do you have any diarrhea?: No Are you experiencing any unusual bleeding?: No Do you have any muscle aches/pain?: No Do you have any abdominal pain?: No Are you experiencing loss of taste or smell?: No Other Medical History Have you received the Flu Vaccine for this season: Yes Have you received the Pneumonia Vaccine: Yes ROS Obtained: Yes All systems reviewed & no additional complaints except as documented Physical Exam General General appearance: alert Respiratory Respiratory exam: Present normal lung sounds bilaterally Cardiovascular Cardiovascular exam: Present regular rate Extremities Exam Extremities exam: Present other (On the left hand on the radial aspect of the fourth digit there is a 2 cm laceration with an active arterial hemorrhage there are also some small abrasions on the dorsal aspect of the forearm) Neurological Exam Neurological exam: Present alert and oriented X3 Medical Decision Making Medical Records Screening: Per USPSTF and CDC recommendations, given the prevalence of disease in our region, it is our hospital?s policy to screen for HIV and viral Hepatitis for all patients aged 18 and over and those with ongoing risk factors. Jeff Inquiry Pt receiving controlled substance: No Vital Signs: 05/11/24 11:03 Temperature 97.2 F L Temperature Source Axillary Pulse Rate [Right Brachial] 64 Respiratory Rate 22 Blood Pressure [Right Arm] 161/71 H Blood Pressure Mean [Right Arm] 101 Blood Pressure Source [Right Arm] Automatic Cuff Blood Pressure Position [Right Arm] Sitting 02 Sat by Pulse Oximetry 97 Oxygen Delivery Method Room Air Orders (Tests/Meds): ORDERS Category Date Time Status HIV (1&2) Antibody Rapid Stat Lab 05/11/24 11:18 Ordered Hep C Ab with Reflex to RNA Stat Lab 05/11/24 11:18 Ordered Medical Decision Narrative: 73-year-old female presented with above history and physical she had an active arterial hemorrhage requiring immediate control. Patient was placed in a tourniquet and had a digital block that was placed in 3 simple and ruptured sutures were placed on the laceration of the finger and attempt to tamponade the blood vessel but she continued to have active hemorrhage after the tourniquet was taken down it was put back up and a [id number] suture was then placed on the localized area of bleeding which is successfully tamponade and controlled the hemorrhaging. Patient was observed for 30 minutes following this. She is been advised to have her sutures removed in 7 to 10 days and to apply antibiotic ointment on this daily for the next 7 days and to keep an eye on it regarding infection. Will update her tetanus as well. Patient was discharged in stable condition. Regarding the superficial abrasions on her forearms they are not deep do not need closure also did not need further evaluation for foreign body or glass even if there is a foreign body be very superficial with exam but I do not appreciate any. Procedures Laceration Laceration 1: Site: finger Side (If applicable): left Size (cm): 2 Description: other (Irregular including a small artery with arterial hemorrhage) Depth: simple, single layer and involves subcutaneous layer Local Anesthetic: lidocaine 1% and with epi (Digital block and directly to the wound) Amount of anesthesia used (mL): 5 Pre-repair: wound explored and irrigated extensively Skin layer closed with: nylon Size (cm): 3-0 Number of sutures: 4 (Patient required 3 interrupted sutures and was placed on a tourniquet in addition to having a lidocaine with epi nerve block but continued hemorrhage requiring a large [id number] suture in the inferior most margin with adequate hemorrhage control) Critical Care Critical Care Time Critical Care Time: No
--- NOTE | 2024-05-11 12:49 | PC.NURSE ---
verified with pt she had a tdap with Dr. Cabrera's office 06/09/22
[2024-05-11 12:59] VITALS: BP 119/68; PULSE 52; RESP 12; TEMP 36.9; O2SAT 100
== END 2024-05-11 13:10 | disposition home or self-care (01) ==
PROVIDERS: Emergency Provider Student in an Organized Health Care Education/Training Program; PCP Internal Medicine Adolescent Medicine
DX: S50.819A Abrasion of unspecified forearm, initial encounter (principal); S61.219A Laceration without foreign body of unspecified finger without damage to nail, initial encounter; R58 Hemorrhage, not elsewhere classified; M79.642 Pain in left hand; M79.602 Pain in left arm; W01.0XXA Fall on same level from slipping, tripping and stumbling without subsequent striking against object, initial encounter; Y93.9 Activity, unspecified; Y92.9 Unspecified place or not applicable
CPT/HCPCS: 90471; 99283